=== PATIENT | male | born 1975 | race Caucasian/White ===

== ENCOUNTER 2024-01-12 22:54 | Observation (INO) | payer BC, SELFPAY ==
[2024-01-12 23:01] VITALS: BP 187/94; PULSE 68; RESP 18; TEMP 36.7; O2SAT 99; BMI 33.5
--- NOTE | 2024-01-12 23:04 | ECG_ITS ---
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 Measurements Intervals [place] Rate: 68 P: 42 [place]: 167 QRS: 31 QRSD: 89 T: 41 QT: 364 QTc: 390 Interpretive Statements SINUS RHYTHM NON-SPECIFIC ST T WAVE CHANGES POSSIBLE LEFT ATRIAL ENLARGEMENT [-0.1mV P-WAVE IN V1/V2] No previous ECG available for comparison Electronically Signed On 01-13-2024 14:08:45 CDT by Sanju Dietz M.D. [id number]
--- NOTE | 2024-01-12 23:12 | XRR_ITS ---
PROCEDURE INFORMATION: Exam: XR Chest Exam date and time: 01/12/2024 11:16 PM Age: 48 years old Clinical indication: Chest pressure; Patient HX: C/O chest pain; Additional info: Cp TECHNIQUE: Imaging protocol: Radiologic exam of the chest. Views: 1 view. COMPARISON: No relevant prior studies available. FINDINGS: Lungs: Small lung volumes. No consolidation. Pleural spaces: No pleural effusion. No pneumothorax. Heart/Mediastinum: No cardiomegaly. Bones/joints: No acute findings. XR/XR chest 1V portable [id number] IMPRESSION: No acute chest findings.
--- NOTE | 2024-01-12 23:15 | ED_ITS ---
HPI - Chest Pain 2 General: Chief Complaint: Chest Pain Stated Complaint: chest pain- left arm and headache Time Seen by Provider: 01/12/24 23:12 History of Present Illness: 48-year-old male patient with a history of hypertension. No history of coronary disease. He presents with chest left arm discomfort, and headache. He has been treated for high blood pressure recently, with losartan. Blood pressure can spike, and so was given clonidine for breakthrough hypertension. He took 1 of these tonight, as he was having blood pressures in the 180s to 190s systolic. Despite taking his medication, he developed chest discomfort, with some neck and arm discomfort and headache as above. No shortness of breath, no diaphoresis or nausea. Pain is somewhat improved now. Related Data Home Medications Medication Instructions Recorded Confirmed clonidine HCl 0.1 mg tablet 0.1 mg PO PRN 01/12/24 01/12/24 losartan 100 mg tablet 100 mg PO DAILY 01/12/24 01/12/24 Allergies Allergy/AdvReac Type Severity Reaction Status Date / Time lisinopril Allergy Unknown Verified 01/12/24 23:07 Physical Exam 2 Const: COMMON NORMALS: no acute distress GENERAL APPEARANCE: cooperative; not ill appearing and not frail appearing HENMT: COMMON NORMALS: normocephalic, atraumatic and Normal external nose present HEAD & SCALP: normocephalic and atraumatic FACE & SINUS: normal facial exam and face symmetric NOSE: Normal external nose present Eye: COMMON NORMALS: Equal, round and reactive pupils present and EOMs intact bilaterally PUPIL: Yes Equal, round and reactive pupils present Neck/C-Spine: GENERAL: Yes trachea midline Chest: CHEST: Yes Symmetrical chest wall rise and Yes tenderness (Left anterior chest wall.) Resp: COMMON NORMALS: normal respiratory effort, No retractions, No use of accessory muscles and clear to auscultation bilaterally AUSCULTATION: clear to auscultation bilaterally Cardio: COMMON NORMALS: regular rate and regular rhythm RATE: regular rate RHYTHM: regular rhythm GI: COMMON NORMALS: Normal to inspection, nondistended, normoactive bowel sounds present Extremity: COMMON NORMALS: no pedal edema Neuro: ADELA COMA SCALE: document GCS findings Adela coma scale eye opening: Spontaneous Adela coma scale verbal response: Orientated [place] coma scale motor response: Obey commands Adela coma scale total score: 15 S ENSORY EXAM: Yes extremities (intact) Psych: COMMON NORMALS: speech normal SPEECH: Yes normal speech Skin: COMMON NORMALS: no rashes or lesions noted GENERAL SKIN EXAM: no rashes or lesions noted Course 2 Vital Signs: Vital signs: Vital Signs Temperature 98.0 F 01/12/24 23:01 Pulse Rate 55 L 01/13/24 02:25 Respiratory Rate 20 H 01/13/24 02:25 Blood Pressure 140/92 01/13/24 02:25 Pulse Oximetry 96 01/13/24 02:25 Oxygen Delivery Me thod Room Air 01/12/24 23:31 MDM - Chest Pain Medical Decision Making Patient has somewhat reproducible left chest wall tenderness. He was quite hypertensive on arrival. He is given amlodipine here. Heart rate 55, blood pressure 146/100. Saturations 94% on room air. EKG shows a sinus rhythm, with normal intervals. There is minimal benign-appearing ST elevation, one half blocks in V1 V2 only, no reciprocal changes. Heart rate is 70. His first troponin, however, is 39. Awaiting a second. 2-hour delta troponin is 4. Chest x-ray is nonacute. Pain is may be starting to come back a bit after morphine and sublingual nitroglycerin. He is given aspirin and Nitropaste here. Spoke with the hospitalist. Will observe this gentleman, as he is EKG is not normal, and troponin is mildly elevated. He will go to the [facility]. Hospitalist will see the patient. Lab Data 01/12/24 23:20 01/12/24 23:20 Radiology Impressions Chest X-Ray 01/12/24 23:12 IMPRESSION: No acute chest findings. Laboratory Results WBC 5.35 10^3/uL (3.29-11.43) 01/12/24 23:20 RBC 4.74 10^6/uL (3.85-5.65) 01/12/24 23:20 Hgb 14.20 g/dL (11.27-16.99) 01/12/24 23:20 Hct 43.4 % (37-53) 01/12/24 23:20 MCV 91.6 fl (82-101) 01/12/24 23:20 MCH 30.0 pg (27-33) 01/12/24 23:20 MCHC 32.7 g/dL (30-55) 01/12/24 23:20 RDW 12.6 % (12.1-15.1) 01/12/24 23:20 Plt Count 134 10^3/cmm (157-399) L 01/12/24 23:20 MPV 11.0 fL (7.4-10.4) H 01/12/24 23:20 Neut % (Auto) 58.2 % 01/12/24 23:20 Lymph % (Auto) 32.0 % 01/12/24 23:20 Nicholas % (Auto) 7.3 % 01/12/24 23:20 Eos % (Auto) 1.5 % 01/12/24 23:20 Baso % (Auto) 0.6 % 01/12/24 23:20 Neut # (Auto) 3.12 10^3/uL (1.8-7.7) 01/12/24 23:20 Lymph # (Auto) 1.7 10^3/uL (0.8-4.8) 01/12/24 23:20 Nicholas # (Auto) 0.4 10^3/uL (0.2-0.9) 01/12/24 23:20 Eos # (Auto) 0.1 10^3/uL (0.0-0.8) 01/12/24 23:20 Baso # (Auto) 0.0 10^3/uL (0.0-0.1) 01/12/24 23:20 Nucleated RBC % (auto) 0 % 01/12/24 23:20 Nucleated RBCs # 0.0 /100WBC 01/12/24 23:20 PT 12.80 SECONDS (12.1-14.9) 01/12/24 23:20 INR 0.93 (0.8-1.2) 01/12/24 23:20 APTT 28.2 SECONDS (23.9-36.7) 01/12/24 23:20 D-Dimer 0.38 ug/mLFEU (0-0.59) 01/12/24 23:20 Sodium 141 mmol/L (136-145) 01/12/24 23:20 Potassium 4.5 mmol/L (3.5-5.1) 01/12/24 23:20 Chloride 104 mmol/L (98-107) 01/12/24 23:20 Carbon Dioxide 28 mmol/L (22-29) 01/12/24 23:20 Anion Gap 13.5 (5-19) 01/12/24 23:20 BUN 22 mg/dL (6-20) H 01/12/24 23:20 Creatinine 1.2 mg/dL (0.7-1.2) 01/12/24 23:20 GFR Calculation 65.2 mL/min (90-130) L 01/12/24 23:20 Glucose 102 mg/dL (65-115) 01/12/24 23:20 Calculated Osmolality 296 mOsm/kg (285-295) H 01/12/24 23:20 Calcium 8.9 mg/dL (8.5-10.5) 01/12/24 23:20 Total Bilirubin 0.5 mg/dL (0.15-1.2) 01/12/24 23:20 AST 16 U/L (0-40) 01/12/24 23:20 ALT 15 U/L (0-41) 01/12/24 23:20 Alkaline Phosphatase 71 U/L (40-130) 01/12/24 23:20 Troponin T Baseline 39 ng/L (0-15) H 01/12/24 23:20 Troponin T 120 Minute 43.23 ng/L (0-15) H 01/13/24 01:30 Delta Troponin T 4.23 ABS# (0-10) 01/13/24 01:30 NT-Pro-B Natriuret Pep < 36 pg/mL (0-125) 01/12/24 23:20 Total Protein 6.5 g/dL (6.6-8.7) L 01/12/24 23:20 Albumin 4.3 g/dL (3.5-5.2) 01/12/24 23:20 Globulin 2.2 g/dL (1.3-4.6) 01/12/24 23:20 All radiology interpretation(s) finalized by discharge Discharge Plan Discharge Patient Disposition: Placed in Observation Clinical Impression: Chest pain Condition: Stable Prescriptions: No Action losartan 100 mg tablet 100 mg PO DAILY clonidine HCl 0.1 mg tablet 0.1 mg PO PRN Referrals: Rosa Isela Castro [Primary Care Provider] - Coding Level of Care Code ED Manager Employee Relations for [employer]
[2024-01-12 23:31] VITALS: BP 184/102; PULSE 63; RESP 18; O2SAT 95
[2024-01-12 23:34] LABS: Basophils % 0.6 %; Eosinophils # 0.1 10^3/uL (0.0-0.8); Eosinophils % 1.5 %; Hematocrit 43.4 % (37-53); Lymphocytes # 1.7 10^3/uL (0.8-4.8); Mean Corpuscular HGB Conc 32.7 g/dL (30-55); Mean Corpuscular Volume 91.6 fl (82-101); Monocytes # 0.4 10^3/uL (0.2-0.9); Monocytes % 7.3 %; Neutrophils # 3.12 10^3/uL (1.8-7.7); Neutrophils % 58.2 %; Nucleated Red Blood Cells % 0 %; Platelet Count 134 10^3/cmm (157-399); Red Blood Count 4.74 10^6/uL (3.85-5.65); Red Cell Distribution Width 12.6 % (12.1-15.1); White Blood Count 5.35 10^3/uL (3.29-11.43)
[2024-01-12 23:41] LABS: INR 0.93 (0.8-1.2)
[2024-01-12 23:42] LABS: Partial Thromboplastin Time 28.2 SECONDS (23.9-36.7)
[2024-01-12 23:44] VITALS: BP 149/91; PULSE 60; RESP 21; O2SAT 94
[2024-01-12 23:45] VITALS: BP 149/91; PULSE 62; RESP 18; O2SAT 95
[2024-01-12 23:50] VITALS: BP 149/91; PULSE 63; RESP 22; O2SAT 95
[2024-01-12 23:52] LABS: Troponin(5th) Baseline 39 ng/L (0-15)
[2024-01-12 23:55] VITALS: BP 149/91; PULSE 57; RESP 22; O2SAT 97
[2024-01-12] MEDS: amlodipine 10 mg Tablet PO (23:57)
[2024-01-12 23:58] LABS: Alanine Aminotransferase 15 U/L (0-41); Albumin Level 4.3 g/dL (3.5-5.2); Alkaline Phosphatase 71 U/L (40-130); Anion Gap 13.5 (5-19); Aspartate Amino Transferase 16 U/L (0-40); Blood Urea Nitrogen 22 mg/dL (6-20); Calcium 8.9 mg/dL (8.5-10.5); Carbon Dioxide 28 mmol/L (22-29); Chloride 104 mmol/L (98-107); Creatinine Clr Calc Pharmacy 96.5293; Globulin 2.2 g/dL (1.3-4.6); Glomerular Filtration Rate 65.2 mL/min (90-130); Glucose 102 mg/dL (65-115); Osmolality Calculated 296 mOsm/kg (285-295); Potassium 4.5 mmol/L (3.5-5.1); Sodium 141 mmol/L (136-145); Total Bilirubin 0.5 mg/dL (0.15-1.2); Total Protein 6.5 g/dL (6.6-8.7)
[2024-01-13] VITALS (139 sets, daily range): BP systolic 97–164; BP diastolic 51–100; PULSE 34–78; RESP 8–37; TEMP 36.7–37.1; O2SAT 92–100; BMI 34.8
[2024-01-13 00:01] LABS: NT Pro B Type Natriuretic Pept < 36 pg/mL (0-125)
[2024-01-13 00:33] LABS: D Dimer 0.38 ug/mLFEU (0-0.59)
[2024-01-13] MEDS: nitroglycerin 0.4 mg sublingual Tablet SUBLINGUAL (01:22)
[2024-01-13] MEDS: ondansetron 2 mg/ML SDV 2 mL 4 MG IVP (01:24)
[2024-01-13] MEDS: morphine 4 mg/mL SDV 1 mL IVP (01:26)
[2024-01-13 01:53] LABS: Troponin 5 2HR 43.23 ng/L (0-15); Troponin 5 2HR Delta 4.23 ABS# (0-10)
--- NOTE | 2024-01-13 02:07 | ECG_ITS ---
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 Measurements Intervals [place] Rate: 58 P: 43 [place]: 164 QRS: 39 QRSD: 97 T: 43 QT: 401 QTc: 394 Interpretive Statements SINUS BRADYCARDIA Compared to ECG 01/12/2024 22:54:40 Sinus rhythm no longer present Electronically Signed On 01-13-2024 14:14:23 CDT by Sanju Dietz M.D. [id number]
[2024-01-13] MEDS: aspirin 81 mg Chew Tablet 324 MG PO (02:44)
[2024-01-13] MEDS: nitroglycerin 1 gm/inch oint Pkt 1 INCH TOPICAL ×2 (02:45→04:36)
--- NOTE | 2024-01-13 03:04 | P.HP_ITS ---
Providers/Chief Complaint 2 Admitting Physician: Jett Marinelli Primary Care Provider: Rosa Isela Castro Chief Complaint: chest pain- left arm and headache History of Present Illness Pleasant 48-year-old gentleman with history of diagnosed hypertension, has had medication changed due to intolerance currently on losartan and has clonidine as needed for breakthrough hypertension. He and family noticed that he over last couple days blood pressure had been elevated up to 160s despite taking his usual medication, and last night it was elevated he even took clonidine, and it was still in the 180s. He also started having chest pain on the left side rating to the back of the head as well as left hand. On presentation in ER he was still hypertensive, blood pressure 180/102, bradycardia, heart rate 54-68, maintaining oxygen saturation, afebrile, without leukocytosis, no anemia, mild thrombocytopenia platelets 134. INR normal, D-dimer obtained and not elevated. CBC unremarkable, normal liver enzymes, BUN 22, creatinine 1.2. Baseline troponin 39, 2-hour troponin 43, NT proBNP undetectable. Chest x-ray read as without acute findings. Despite initial improvement in pain, pain had returned and still there at about a 4/10. Review of Systems 2 Const: Denies: fever(s), chills, body aches or malaise ENMT: Denies: throat pain Card: Reports: chest pain; Denies: edema, pre-syncope or dyspnea on exertion Resp: Denies: productive cough, change in phlegm color or hemoptysis GI: Denies: abdominal pain, nausea, vomiting, diarrhea, constipation, hematochezia or melena : Denies: hematuria Skin/Breast: Denies: rash or new lesions Neuro: Denies: headache(s) or dizziness Medications/Allergies Home Medications Medication Instructions Recorded Confirmed Last Taken Type clonidine HCl 0.1 mg tablet 0.1 mg PO PRN 01/12/24 01/12/24 01/12/24 History losartan 100 mg tablet 100 mg PO DAILY 01/12/24 01/12/24 01/12/24 History Allergies Allergy/AdvReac Type Severity Reaction Status Date / Time lisinopril Allergy Unknown Verified 01/12/24 23:07 PFSH Acute 2 PFSH: Medical History (Updated 01/13/24 @ 04:53 by Jett Marinelli MD) HTN (hypertension) Vitals/I&O/Wt Last Vital Signs Temp 98.0 F 01/12/24 23:01 Pulse 58 L 01/13/24 03:00 Resp 10 L 01/13/24 03:00 BP 132/84 01/13/24 03:00 Pulse Ox 97 01/13/24 03:00 O2 Del Method Room Air 01/12/24 23:31 Weight last 48 hrs Weight 108.862 kg Physical Exam 2 Narrative: Accompanied by his family. Const: COMMON NORMALS: patient oriented x3 and alert GENERAL APPEARANCE: c ooperative ORIENTATION/CONSCIOUSNESS: Yes awake HENMT: COMMON NORMALS: oropharynx normal Neck/C-Spine: COMMON NORMALS: no JVD Chest: OTHER: Mild pain reproducible with palpation over the left pectoral. Resp: COMMON NORMALS: normal respiratory effort and clear to auscultation bilaterally AUSCULTATION: clear to auscultation bilaterally Cardio: COMMON NORMALS: no JVD, regular rhythm, S1 normal heart sound present, S2 normal heart sound present and No murmurs present (Cardio) RHYTHM: regular rhythm HEART SOUNDS: S1 normal heart sound present and S2 normal heart sound present GI: COMMON NORMALS: Normal to inspection, nondistended, normoactive bowel sounds present, Soft to palpation and non-tender PALPATION: Yes Soft to palpation Extremity: COMMON NORMALS: no joint enlargement and no pedal edema Neuro: COMMON NORMALS: patient oriented x3 and moves all extremities S ENSORIUM/ORIENTATION: Yes alert Skin: COMMON NORMALS: no rashes or lesions noted GENERAL SKIN EXAM: no rashes or lesions noted Data 01/12/24 23:20 01/12/24 23:20 A&P Assessment and plan (1) NSTEMI (non-ST elevated myocardial infarction): Left-sided chest pain, rating to left arm also somewhat to the back of the head. Troponin with mild elevation 39-43. D-dimer not elevated. History of hypertension. Never smoker, no family history of heart disease. 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 Some of the pain is reproducible, but as per discussion difficult to delineate which pain might be musculoskeletal versus cardiac. Reviewed vitals, CBC, INR, D-dimer, CMP, troponin, NT proBNP, chest x-ray, EKG appears to have on my depression J-point elevation in V1, V2 with suspected early repolarization, pending official read. Discussed with cigar packer and shader, repeat EKG in case of persistent pain, nitro drip. Started anticoagulation with Lovenox, monitor for risk of bleeding with anticoagulation and antiplatelet. Continue aspirin. Repeat CBC. Cardiology consultation. Obtain TTE. Keep n.p.o., discussed with patient and his with return of pain, concern for acute NE, coronary calcifications on CTA, additional assessment with coronary angiography likely may be needed. Deferred stress testing. Continue aspirin. Check lipid profile. Likely will need statin. Hold off beta-luke for now due to bradycardia. Monitor on telemetry with risk of life-threatening arrhythmia. Will need continued optimization of cardiovascular risk factors after discharge, mainly hypertension. (2) Chest pain: Additional workup as above for concern for suspected NSTEMI. Check CK. (3) Troponin level elevated: (4) Uncontrolled hypertension: Will benefit from continued optimization of hypertension, continue losartan, add amlodipine. Continue clonidine as needed at home. Currently on Nitropaste, in case persistent chest pain, elevated blood pressure, start nitro drip. (5) Thoracic aortic ectasia: Incidentally noted on CT, discussed with him and his noted aortic ectasia 4 cm, at the root and 3.8 cm ascending thoracic aorta. No evidence of dissection on CTA. Will need optimization of blood pressures, follow-up with PCP Attestations 2 Medical Necessity Statement*: Place in observation for additional assessment management of NSTEMI, uncontrolled/difficult to control hypertension. Diagnoses NSTEMI (non-ST elevated myocardial infarction) I21.4 Chest pain R07.9 Troponin level elevated R79.89 Uncontrolled hypertension I10 Thoracic aortic ectasia I77.810
--- NOTE | 2024-01-13 03:31 | CTR_ITS ---
PROCEDURE INFORMATION: Exam: CTA Chest With Contrast Exam date and time: 01/13/2024 3:33 AM Age: 48 years old Clinical indication: Pain and abnormal findings; Abnormal diagnostic tests; Other: Elevated trop; Chest pressure; Patient HX: C/O chest pain with hypertension. Elevated base troponin with positive delta. Widened mediastinum on XR. TECHNIQUE: Imaging protocol: Computed tomographic angiography of the chest with contrast. Exam focused on the arteries. 3D rendering (Not supervised by radiologist): MIP and/or 3D reconstructed images were created by the technologist. Radiation optimization: All CT scans at this facility use at least one of these dose optimization techniques: automated exposure control; mA and/or kV adjustment per patient size (includes targeted exams where dose is matched to clinical indication); or iterative reconstruction. Contrast material: OMNI 350; Contrast volume: 100 ml; Contrast route: INTRAVENOUS (IV); COMPARISON: CT angio chest [id number] 01/13/2024 3:33 AM RADIATION DOSE METRICS: Total DLP (mGy-cm): 923.63 FINDINGS: Pulmonary arteries: No pulmonary emboli. Aorta: Aortic root measures upwards of 4.0 cm. Ascending thoracic aorta measures upwards of 3.8 cm. No evidence of dissection. Lungs: No consolidation. No masses. Pleural spaces: No pneumothorax. No pleural effusion. Heart: Cardiomegaly. Coronary arteries: Multivessel coronary artery calcification. Lymph nodes: No enlarged lymph nodes. Spleen: Splenomegaly. Bones/joints: No acute fracture. Soft tissues: Unremarkable. CT/CT angio chest [id number] IMPRESSION: 1. Enlargement of the aortic root measuring up to 4.0 cm along with ectasia of the ascending thoracic aorta measuring 3.8 cm. No evidence of aortic dissection. 2. Cardiomegaly and multivessel coronary artery calcification
[2024-01-13] MEDS: iohexol 350 mg/mL 500 mL Btl (per mL) IV (03:41)
--- NOTE | 2024-01-13 03:44 | USCV_ITS ---
Torrey Wheeler Age: 48 Gender: M : 1975 Exam Date: 01/13/2024 14:25 Ordering Phys: Jett Marinelli MD Technologist: Exam Location: Indication: BP: / HR: Rhythm: Sinus Technical Quality: MEASUREMENTS (Male / Female) Normal Values FINDINGS Left Ventricle Normal left ventricular size, systolic function and wall thickness, with no regional wall motion abnormalities. Left ventricular ejection fraction is estimated at 60 %. Grade I/IV diastolic dysfunction (abnormal relaxation filling pattern), normal to mildly elevated filling pressures. Right Ventricle The right ventricle is normal in size and function. Right Atrium The right atrium is normal in size. Left Atrium The left atrium is normal in size. Mitral Valve Moderately thickened mitral valve. Mitral annular calcification. No mitral valve stenosis. Mild mitral valve regurgitation. Aortic Valve Moderate aortic valve calcification. No aortic valve stenosis. Trace aortic valve regurgitation. Tricuspid Valve Structurally normal tricuspid valve without significant stenosis or regurgitation. Pulmonary artery systolic pressure is normal. Pulmonic Valve Structurally normal pulmonic valve without significant stenosis. There is no pulmonic regurgitation. Pericardium Normal pericardium without effusion. Aorta Normal ascending aorta dimension. IVC The inferior vena cava appears normal. CONCLUSIONS Normal left ventricular size, systolic function and wall thickness, with no regional wall motion abnormalities. Left ventricular ejection fraction is estimated at 60 %. Grade I/IV diastolic dysfunction (abnormal relaxation filling pattern), normal to mildly elevated filling pressures. Moderate aortic valve calcification. No aortic valve stenosis. Trace aortic valve regurgitation. Right atrial pressure is around 5 mm of mercury. Keerthi Sr MD (Electronically Signed) Final Date: 14 January 2024 14:07 S
[2024-01-13] MEDS: enoxaparin 120 mg/0.8 mL Syringe 110 MG SUBCUT (04:37)
[2024-01-13 04:45] LABS: Cholesterol 205 mg/dL (0-200); Creatine Phosphokinase 250 U/L (39-308); HDL Cholesterol 50 mg/dL (60-100); LDL Cholesterol Calculated 108 mg/dL (50-129); Triglycerides 233 mg/dL (0-150); VLDL Cholestrol Calculation 47 mg/dL (0-30)
--- NOTE | 2024-01-13 05:03 | ECG_ITS ---
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 Measurements Intervals [place] Rate: 56 P: 42 [place]: 167 QRS: 39 QRSD: 90 T: 42 QT: 408 QTc: 397 Interpretive Statements SINUS BRADYCARDIA Compared to ECG 01/13/2024 02:07:42 No significant changes Electronically Signed On 01-13-2024 14:14:13 CDT by Sanju Dietz M.D. [id number]
[2024-01-13 07:00] LABS: Troponin 5 6HR 140.4 ng/L (0-15)
[2024-01-13 07:01] LABS: Troponin 5 6HR Delta 101.4 ng/L (0-12)
--- NOTE | 2024-01-13 08:05 | P.CONIM_ITS ---
Providers/Reason For Consult 2 Consulting Physician/Specialty*: Sanju Dietz MD/ Cardiology Reason for Consult*: NSTEMI Requesting Physician: Dr Marinelli Attending Physician: Dejuan Pritchett MD Primary Care Provider: Rosa Isela Castro History of Present Illness History of Present Illness Torrey Wheeler is a 48 year old male with past medical history of hypertension which is uncontrolled presented to hospital with chest discomfort and elevated blood pressure. Pain was radiating to the back and to the neck. Even after blood pressure control patient continues having chest discomfort. Initial troponin was 39 that trended up to 140 at 6 hours. EKG had non specific ST changes in alexus/anteroseptal leads. CTA chest was performed that showed ectatic ascending aorta. Review of Systems 2 Const: Denies: fever(s), chills, body aches or malaise ENMT: Denies: throat pain Card: Reports: chest pain; Denies: edema, pre-syncope or dyspnea on exertion Resp: Denies: productive cough, change in phlegm color or hemoptysis GI: Denies: abdominal pain, nausea, vomiting, diarrhea, constipation, hematochezia or melena : Denies: hematuria Skin/Breast: Denies: rash or new lesions Neuro: Denies: headache(s) or dizziness Medications/Allergies Home Medications Medication Instructions Recorded Confirmed Last Taken Type clonidine HCl 0.1 mg tablet 0.1 mg PO PRN 01/12/24 01/12/24 01/12/24 History losartan 100 mg tablet 100 mg PO DAILY 01/12/24 01/12/24 01/12/24 History Allergies Allergy/AdvReac Type Severity Reaction Status Date / Time lisinopril Allergy Unknown Verified 01/12/24 23:07 Current Medications Generic Name Dose Route Start Last Admin Trade Name Freq PRN Reason Stop Dose Admin Enoxaparin Sodium 110 mg 01/13/24 04:30 01/13/24 04:37 Enoxaparin 120 Mg/0.8 Ml Syringe SUBCUT 110 mg Q12H SADE Administration Nitroglycerin 1 inch 01/13/24 04:15 01/13/24 04:36 Nitroglycerin 1 Gm/Inch Oint Pkt TOPICAL 1 inch ONCE SADE Administration PFSH Acute 2 PFSH: Medical History HTN (hypertension) Vitals/I&O/Wt Last Vital Signs Temp 98.0 F 01/13/24 07:14 Pulse 52 L 01/13/24 07:14 Resp 16 01/13/24 07:14 BP 115/76 01/13/24 07:14 Pulse Ox 95 01/13/24 07:14 O2 Del Method Room Air 01/13/24 07:14 Weight last 48 hrs Weight 252 lb 3.341 oz Weight 250 lb 0.067 oz Weight 240 lb Physical Exam 2 Narrative: GENERAL: Patient is alert, awake and oriented x3. [] NECK: No jugular vein distension. [] HEENT: No cyanosis. No icterus. No pallor. [] HEART: Regular S1 and S2. No murmur, rub or gallop. [] LUNGS: Clear to auscultate bilaterally. [] CENTRAL NERVOUS SYSTEM: Grossly nonfocal. [] EXTREMITIES: Lower extremities with 1+ edema bilaterally Data 01/14/24 04:01 01/14/24 04:01 A&P Assessment and plan (1) NSTEMI (non-ST elevated myocardial infarction): (2) Uncontrolled hypertension: (3) Thoracic aortic ectasia: Plan Patient has presented with typical chest pain symptoms and troponin elevation. Pain continues after blood pressure control. Will proceed with coronary angiogram with possible PCI. Risks and benefits of the procedure been discussed. He understand these and wants to proceed. He has been given Lovenox. Continue aspirin. ECHO ordered. Thank you for involving us with care of this patient. We will continue to follow. Please call with questions. Consult Attestations 2 Medical Necessity Statement: Care expected to cross 2 midnights. Coding Level of Care Code Acute Code for [facility] Diagnoses NSTEMI (non-ST elevated myocardial infarction) I21.4 Uncontrolled hypertension I10 Thoracic aortic ectasia I77.810
[2024-01-13 08:22] LABS: Thyroid Stimulating Hormone 3.81 uIU/mL (0.27-4.20)
[2024-01-13] MEDS: losartan 50 mg Tablet 100 MG PO (08:26)
[2024-01-13] MEDS: aspirin 325 mg Tablet PO (08:26)
[2024-01-13] MEDS: amlodipine 10 mg Tablet PO (08:26)
--- NOTE | 2024-01-13 08:26 | XACV_ITS ---
Exam Room: [facility] Ht: 180 cm Wt: 114 kg BSA: 2.43 m2 Gender: Male : 1975 Any Known Allergies: Other Exam Priority: Routine Procedure(s): Procedure Description: Diagnostic procedure Procedure Description: PCI procedure Procedure Description: Coronary IVUS Procedure Description: Drug Eluting Coronary Stent Procedure Description: PTCA Procedure Description: Miscellaneous Procedure Description: ACT Procedure Description: Coronary Angiography Diagnostic Cath Status: Urgent Diagnostic Findings * Left Main has no significant disease. * Circumflex has no significant disease. * Right Coronary Artery has no significant disease. * Mid Left Anterior Descending: significant 70-80% stenosis, ASHLEY: 3 flow. Has hazy appearance to it. IVUS showed MLA of 3mm2. * Coronary angiography shows right dominance. PCI Status: Urgent PCI Indication: NSTE - ACS Interventional Findings * PROCEDURE DETAIL: We engaged left main artery with XB 3.5 guide catheter. IV heparin was administered to maintain anticoagulation. As IFR set up was not working, we proceeded with the IVUS over runthrough wire. IVUS showed a MLA of 3.0 mm2. We predilated stenosis with 3.5x15mm semicompliant balloon. We then placed 3.5 x 22 mm resolute Brandie drug-eluting stent.This was followed by postdilation of the proximal segment with 4.0 x 15 mm NC balloon. IVUS was performed that showed well apposed and well expanded stent. Final angiogram performed that showed excellent stent expansion, ASHLEY 3 flow and no residual stenosis. Guidewire and guide catheter were removed. Patient left the Tmh Teacher in a stable condition.. * Mid Left Anterior Descendin% stenosis treated with a AB TREK 3.50X15 RX BALLOON, SHAMEKA Law BRANDIE 3.5X22 MIRACLE, and SHAMEKA BALBUENA EUPHORA RX [id number] BALLOON. 0% residual stenosis, ASHLEY: 3 flow. Conclusions 1. Severe mid LAD stenosis s/p successful revascularization with 1 stent. 2. Mid Left Anterior Descending was treated with a Balloon, Drug Eluting Stent, and Balloon. Recommendations * Dual antiplatelet therapy with aspirin and brilinta for at least 1 year. * High intensity statin therapy. * Outpatient cardiology follow up in 2 weeks. Interventional RX Recommendation: PCI w/o planned CABG Diagnostic RX Recommendation: PCI w/o planned CABG Anticoagulation: Heparin Pressures Phase:Rest AO : 118 / 89 ( 105 ) @ 10:05:00 AM 131 / 81 ( 98 ) @ 10:08:00 AM 118 / 67 ( 87 ) @ 10:22:00 AM 106 / 71 ( 90 ) @ 10:48:00 AM Clinical Evaluation EBL: 5mL-10mL Procedural Details Procedure Consent Obtained. Pre-Procedure Time Out. Identified patient by full name and date of as verbalized by the patient/guarantor. Does the consent match the physician's order: Yes. Accurate & Complete Informed Consent: Yes. Inpatient/Outpatient History & Physical on Chart: Yes. If H&P is completed, is and addenduem needed: No. Visualize and Verify Site with Patient/Guarantor: N/A. Relevant Radiology Images available: Yes. The risks, benefits, and alternatives of sedation and/or procedure were discussed by physician. The patient agrees to continue. Procedure started. [facility] Clinical Fraility Score: 3: Managing Well. Tmh Teacher Indications: ACS > 24 hours. Chest Pain Symptom Assessment: Typical Angina Symptoms. Cardiovascular Instability: No. Correct patient, site and procedure confirmed by cath team. PERRLA. Strong, equal hand tugboat pilot bilaterally. Lungs clear x 5 lobes. IV Site on Arrival: 20 gauge in the left anticubital. IV Fluids: 0.9% NaCl at KVO. 0 mL infused prior to bolt labeler. Pre Procedural Pulses: bilateral dorsalis pedis was 3+. Pre Procedural Pulses: bilateral posterior tibial was 3+. Pre Procedural Pulses: bilateral radial was 3+. Oxygen started at 2liters/min via nasal canula. right groin was prepped with chloroprep then draped in the usual sterile fashion. right radial was prepped with chloroprep then draped in the usual sterile fashion. Physician notified. Baseline sample Acquired. HR: 59 BPM. Patient's family in the bolt labeler waiting room. Dr. Dietz will update at the completion of the procedure. Equipment: 6F - Radial. Cardiac Cath Pack. ACIST Manifold Kit Model BT 2000. Heparinized Saline (2 units/mL), 1000 mL bag. Physician arrived. Physician scrubbed in. Immediate Pre-Procedure Time Out. Correct Patient: Yes; Correct Procedure: Yes; Correct Site: Yes; Correct Patient Position: Yes; Correct Supplies: Yes; Dried Flammable Prep: Yes; Blood Products Available: N/A. Lidocaine 1% infiltrated to the right radial. Arterial access obtained. A 5 eritrean TIG catheter in over the exchange J wire. Multiple views taken of right coronary artery. Catheter removed over the exchange J wire. A 5 eritrean JL3.5 catheter in over the exchange J wire. Multiple views taken of left coronary artery. Catheter removed over the exchange J wire. 6 eritrean XB 3.5 guide catheter was inserted over the exchange J wire. iFR guidewire was advanced through the guide catheter to lesion in the mid LAD. iFR out d/t technical issues. A 2nd iFR guidewire was advanced through the guide catheter to lesion in the mid LAD. 2nd iFR out d/t technical issues. Runthrough guidewire was advanced through the guide catheter to lesion in the mid LAD. IVUS catheter in OTW. IVUS of the mid LAD performed. IVUS catheter out OTW. Inflation number : 1 A AB TREK 3.50X15 RX BALLOON was prepped and advanced across the Mid LAD , then inflated to 8 HEATL for 0:10 seconds. Inflation number: 2 The AB TREK 3.50X15 RX BALLOON was reinflated across the Mid LAD, to 8 HETAL for 0:12 seconds. Balloon out. Results checked. Inflation Number : 3 A MDT R BRANDIE 3.5X22 MIRACLE -Lot Number# [id number] was prepped and advanced across the Mid LAD. The stent was deployed at 14 HETAL for 0:25 seconds. Exp . Stent balloon out over wire. Inflation number : 4 A MDT NC EUPHORA RX [id number] BALLOON was prepped and advanced across the Mid LAD , then inflated to 14 HETAL for 0:18 seconds. Inflation number: 5 The MDT NC EUPHORA RX [id number] BALLOON was reinflated across the Mid LAD, to 16 HETAL for 0:09 seconds. Balloon out. Results checked. IVUS catheter in OTW. IVUS of the mid LAD performed. IVUS catheter out OTW. Results checked. Dr. Pritchett updated the spouse in the bolt labeler waiting room. Wire out. ACT drawn. Results out of range high. Will redraw. Guide catheter out over the exchange J wire. Physician scrubbed out. Medication's Wasted: Lidocaine 1% = 18 mL. Medication's Wasted: Nitro = 49.6 mg. Medication's Wasted: Heparin = 0 mL. Medication's Wasted: Other = Fentanyl 25 mcg. Total IV fluids: 80 mL. PCI Indication: CAD (without ischemic symptoms). Post-op diagnosis: PCI of the Mid LAD s/p 1 MIRACLE. ACT drawn. Results 327 seconds. Therapeutic limits - pre-heparin administration 90-150 seconds and monitoring heparin during a vascular procedure >250 seconds. A TR Band was successful obtaining hemostatsis at the Right Radial artery insertion site. Post Procedure: Pulses reassessed and unchanged. PERRLA. Strong, equal hand tugboat pilot bilaterally. No VTE prophylaxis required. Complications: none. Estimated blood loss: 5mL-10mL. Responsiveness - Normal response to verbal stimuli; alert and oriented, PERRLA. Airway - Unaffected, no intervention required; spontaneous ventilation. Circulation: W/N/L, pulses unchanged. Nausea/Vomiting: No. Procedure completed. Patient transferred by wheelchair to CPRU. Vital chart was stopped. Access Site Site: Right Radial artery Sheath Size: 6 Fr Hemostasis Method: TR Band Hemostasis Success: Successful Procedure Medications Start: 8:52 AM Stop: 8:52 AM Medication: Versed Amount: 1 mg Route: I.V. Start: 8:52 AM Stop: 8:52 AM Medication: Fentanyl Amount: 50 mcg Route: I.V. Start: 9:00 AM Stop: 9:00 AM Medication: Versed Amount: 1 mg Route: I.V. Start: 9:02 AM Stop: 9:02 AM Medication: Nitrogylcerin Amount: 200 mcg Route: I.A. Start: 9:03 AM Stop: 9:03 AM Medication: Heparin Amount: 5000 units Route: I.V. Start: 9:13 AM Stop: 9:13 AM Medication: Heparin Amount: 5000 units Route: I.V. Start: 9:32 AM Stop: 9:32 AM Medication: Fentanyl Amount: 25 mcg Route: I.V. Start: 9:37 AM Stop: 9:37 AM Medication: Heparin Amount: 1000 units Route: I.V. Start: 9:48 AM Stop: 9:48 AM Medication: Nitrogylcerin Amount: 200 mcg Route: I.C. Start: 9:56 AM Stop: 9:56 AM Medication: Brilinta Amount: 180 mg Route: P.O. I, the attending physician, have reviewed and verified all procedure medications. Yes, all medications given per verbal order History/Risk Factors Hypertension: Yes Dyslipidemia: No Peripheral Arterial Disease (PAD): No Myocardial Infarction (HI): No Obesity: Yes Renal Disease: No Tobacco Use: Never Prior Interventions PCI: Yes CABG: No Valve Surgery: No Date of PCI: 01/13/2024 Report Signatures Finalized by Sanju Dietz MD on 01/14/2024 05:21 PM
--- NOTE | 2024-01-13 08:45 | W.PM.EVENTAC ---
Event Note Event Note: Patient seen, history and physical reviewed, patient interviewed and attending changed. Undergoing workup for non-ST elevation myocardial infarction. I discussed with cardiology as well.
--- NOTE | 2024-01-13 08:55 | W.PM.OPSUD ---
Surgery/Procedure H&P Update DATE OF PROCEDURE: January 13, 2024 DATE H&P PERFORMED: 01/13/24 H&P UPDATE INFORMATION: I have reviewed H&P completed within last 30 days, I have examined patient prior to procedure and No changes to prior documentation PREOP DIAGNOSIS: NSTEMI PRIMARY INDICATION FOR PROCEDURE: NSTEMI PLANNED PROCEDURE: Left heart cath with possible percutaneous coronary intervention PATIENT REASSESSED PRIOR TO SEDATION, WITH NO CHANGE NOTED: Yes PHYSICAL EXAM: alert, oriented x 3, clear to auscultation bilaterally and regular rate & rhythm AIRWAY EVAL/ANESTHESIA PLAN: normal airway, ASA III, Local Anesthesia, Risks, benefits & alternatives of sedation and/or procedure discussed and Patient agrees to continue as planned ADDITIONAL INFORMATION: Moderate sedation
--- NOTE | 2024-01-13 08:59 | PC.NURSE ---
Patient left floor for cath procedure
--- NOTE | 2024-01-13 10:58 | PC.NURSE ---
Patient arrived back from cath procedure via wheelchair. Patient has a TR band on right radial wrist. Patient is aware of activity restrictions and safety protocols. Nurse will monitor q15m and remove TR band per protocol.
--- NOTE | 2024-01-13 11:37 | ECG_ITS ---
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 Measurements Intervals [place] Rate: 66 P: 262 [place]: 136 QRS: 60 QRSD: 89 T: 64 QT: 414 QTc: 434 Interpretive Statements JUNCTIONAL RHYTHM/Ectopic atrial rhythm ST ELEVATION, CONSIDER ANTERIOR INJURY [MARKED ST ELEVATION W/O NORMALLY INFLECTED T-WAVE IN V2-V5]ACUTE AR Compared to ECG 01/13/2024 05:03:16 Junctional rhythm now present ST (T wave) deviation now present Myocardial infarct finding now present Sinus bradycardia no longer present Pericarditis versus early repolarization also are considerations Electronically Signed On 01-15-2024 16:50:27 CDT by Larisa Lucio M.D. [email or web address]
--- NOTE | 2024-01-13 11:42 | XACV_ITS ---
Exam Room: [facility] Ht: 178 cm Wt: 91 kg BSA: 2.14 m2 Gender: Male : 1975 Any Known Allergies: Other Exam Priority: Routine Procedure(s): Procedure Description: Diagnostic procedure Procedure Description: PCI procedure Procedure Description: Drug Eluting Coronary Stent Procedure Description: PTCA Procedure Description: Miscellaneous Procedure Description: ACT Diagnostic Cath Status: Emergency Diagnostic Findings * INDICATION: Patient had presented with non-ST elevation IN and underwent successful revascularization of mid LAD with 1 stent. Patient went to the floor and started complaining of chest pain, bradycardia and tingling in the arm about 1 hour postprocedure. EKG was consistent with acute anterior wall ST elevation IN. Patient brought to liaison inspection laboratory assistant emergently. . * Left Main has no significant disease. * Circumflex has no significant disease. * Mid Left Anterior Descending: At distal edge of the stent, LAD is totally occluded. Likely mechanism is stent edge dissection. . * RCA not injected. PCI Status: Emergency PCI Indication: STEMI - Immediate PCI for STEMI Interventional Findings * Mid Left Anterior Descendin% stenosis treated with a AB TREK 2.50X12 RX BALLOON, AB TREK 2.50X25 RX BALLOON, MDKezia Law BRANDIE 2.5X30 MIRACLE, and MDT ESHA EUPHORA RX [id number] BALLOON. 0% residual stenosis, ASHLEY: 3 flow. * Procedure detail: We engaged left main artery with XB 3.5 guide catheter. IV heparin was administered to maintain anticoagulation. Run-through wire was used to cross the totally occluded LAD segment and was placed in the distal vessel. We performed balloon angioplasty starting from distal part of mid LAD stent into the [place] artery. We used 2.5 x 12 mm semicompliant balloon. This was followed by a longer balloon measuring 2.5 x 25 mm. However flow was not seen. Given mechnism of abrupt vessel closure was stent edge dissection, we decided to place a stent measuring 2.5 x 30 mm resolute [place]. This restored ASHLEY 3 flow in the vessel. We post dilated the overlapping segments of the stents with a 3.0x12 mm NC balloon. Final angiogram was performed that showed excellent stent expansion and no residual stenosis. Guide wire and guide catheter were removed. Patient left the liaison inspection laboratory assistant in a stable condition. . Conclusions 1. Total occlusion of mid LAD at distal edge of recently placed stent. Likely secondary to stent edge dissection. S/p successful revascularization with placement of 1 overlapping stent. 2. Mid Left Anterior Descending was treated with a Balloon, Balloon, Drug Eluting Stent, and Balloon. Recommendations * Dual antiplatelet therapy with aspirin and brilinta. * High intensity statin therapy. * Outpatient cardiology follow up in 2 weeks. Interventional RX Recommendation: PCI w/o planned CABG Diagnostic RX Recommendation: PCI w/o planned CABG Anticoagulation: Heparin Pressures Phase:Rest AO : 134 / 87 ( 107 ) @ 12:51:00 PM 132 / 86 ( 105 ) @ 12:51:00 PM 111 / 80 ( 96 ) @ 12:56:00 PM 109 / 80 ( 94 ) @ 12:58:00 PM 98 / 75 ( 87 ) @ 1:01:00 PM 78 / 62 ( 71 ) @ 1:03:00 PM 99 / 72 ( 87 ) @ 1:11:00 PM Clinical Evaluation EBL: 5mL-10mL Procedural Details Pre-Procedure Time Out. Identified patient by full name and date of as verbalized by the patient/guarantor. Does the consent match the physician's order: N/A Emergent. Accurate & Complete Informed Consent: N/A Emergent. Inpatient/Outpatient History & Physical on Chart: N/A Emergent. If H&P is completed, is and addenduem needed: N/A Emergent; If yes, is the addendum complete: N/A Emergent. Visualize and Verify Site with Patient/Guarantor: N/A. Relevant Radiology Images available: N/A Emergent. Pre-op teaching completed and patient verbalized understanding. The risks, benefits, and alternatives of sedation and/or procedure were discussed by physician. The patient agrees to continue. Procedure started. Physician arrived. Physician scrubbed in. Immediate Pre-Procedure Time Out. Correct Patient: N/A Emergent; Correct Procedure: N/A Emergent; Correct Site: N/A Emergent; Correct Patient Position: N/A Emergent; Correct Supplies: N/A Emergent; Dried Flammable Prep: N/A Emergent; Blood Products Available: N/A Emergent;. Lidocaine 1% infiltrated to the right groin. Baseline sample Acquired. HR: 63 BPM. [facility] Clinical Fraility Score: 4: Vulnerable. Radiologic Technician Indications: ACS <= 24 hours. Chest Pain Symptom Assessment: Atypical Angina. Correct patient, site and procedure confirmed by cath team. Current diagnosis: STEMI. PERRLA. Strong, equal hand sand hauler bilaterally. Lungs clear x 5 lobes. Oxygen started at 2liters/min via nasal canula. bilateral groins was prepped with chloroprep then draped in the usual sterile fashion. 6 burmese XB 3.5 guide catheter was inserted over the wire. Runthrough guidewire was advanced through the guide catheter to lesion in the mid LAD. PCI Indication: STEMI. IV Site on Arrival: 20 gauge in the right anticubital. Wire out. Runthrough guidewire was advanced through the guide catheter to lesion in the mid LAD. Inflation number : 1 A AB TREK 2.50X12 RX BALLOON was prepped and advanced across the Mid LAD , then inflated to 8 HETAL for 0:13 seconds. Inflation number: 2 The AB TREK 2.50X12 RX BALLOON was reinflated across the Mid LAD, to 12 HETAL for 0:11 seconds. Balloon out. Results checked. Inflation number : 3 A AB TREK 2.50X25 RX BALLOON was prepped and advanced across the Mid LAD , then inflated to 6 HETAL for 0:19 seconds. Inflation number: 4 The AB TREK 2.50X25 RX BALLOON was reinflated across the Mid LAD, to 4 HETAL for 0:14 seconds. Balloon out. Results checked. Inflation Number : 5 Geovanni Law BRANDIE 2.5X30 MIRACLE -Lot Number# [id number] EXP: 02/23/2026 was prepped and advanced across the Mid LAD. The stent was deployed at 12 HETAL for 0:25 seconds. Stent balloon out over wire. Results checked. Patient's family updated. Inflation number : 6 Geovanni BALBUENA CATHERINE RX [id number] BALLOON was prepped and advanced across the Mid LAD , then inflated to 12 HETAL for 0:29 seconds. Balloon and wire out. ACT drawn. Results 372 seconds. Therapeutic limits - pre-heparin administration 90-150 seconds and monitoring heparin during a vascular procedure >250 seconds. Results checked. Guide catheter out. A Right femoral angiogram was performed to determine safe placement of closure device. Arterial access obtained with micropuncture set. A Suture was successful obtaining hemostatsis at the Right Femoral artery insertion site. Vital chart was stopped. Post Procedure: Pulses reassessed and unchanged. PERRLA. Strong, equal hand sand hauler bilaterally. No VTE prophylaxis required. Medication's Wasted: Other = Fentanyl 75 mcg. Medication's Wasted: Lidocaine 1% = 10 mL. Total IV fluids: 300 mL. Post-op diagnosis: Stent to LAD. Complications: None. Estimated blood loss: 5mL-10mL. Responsiveness - Normal response to verbal stimuli; alert and oriented, PERRLA. Airway - Unaffected, no intervention required; spontaneous ventilation. Circulation: W/N/L, pulses unchanged. Nausea/Vomiting: No. Procedure completed. ACT drawn. Results 225 seconds. Therapeutic limits - pre-heparin administration 90-150 seconds and monitoring heparin during a vascular procedure >250 seconds. Patient transferred by bed to ICU. Access Site Site: Right Femoral artery Sheath Size: 6 Fr Hemostasis Method: Suture Hemostasis Success: Successful Procedure Medications Start: 11:49 AM Stop: 11:49 AM Medication: Versed Amount: 1 mg Route: I.V. Start: 11:50 AM Stop: 11:50 AM Medication: Fentanyl Amount: 25 mcg Route: I.V. Start: 11:53 AM Stop: 11:53 AM Medication: Heparin Amount: 3000 units Route: I.V. Start: 11:54 AM Stop: 11:54 AM Medication: Versed Amount: 1 mg Route: I.V. Start: 12:00 PM Stop: 12:00 PM Medication: Nitrogylcerin Amount: 200 mcg Route: I.C. Start: 12:06 PM Stop: 12:06 PM Medication: 0.9% Saline Amount: 250 ml Route: I.V. bolus Start: 12:24 PM Stop: 12:24 PM Medication: Heparin Amount: 2000 units Route: I.V. I, the attending physician, have reviewed and verified all procedure medications. Yes, all medications given per verbal order History/Risk Factors Hypertension: Yes Dyslipidemia: No Peripheral Arterial Disease (PAD): No Myocardial Infarction (IN): No Obesity: Yes Renal Disease: No Tobacco Use: Never Prior Interventions PCI: Yes CABG: No Valve Surgery: No Date of PCI: 01/13/2024 Report Signatures Finalized by Sanju Dietz MD on 01/15/2024 02:54 PM
--- NOTE | 2024-01-13 11:50 | PC.NURSE ---
Patient Event Patient used restroom came back from restroom and became diaphoretic, chest pain, and bradycardic. Rapid response was initiated. Atropine, Zofran, and 500ml bolus given. Patient taken back to analytical laboratory technician approx. 11:45.
--- NOTE | 2024-01-13 11:55 | W.PM.EVENTAC ---
Event Note Event Note: I responded to a rapid response. When I entered the room the nurse immediately asked for atropine. This was secondary to bradycardia. I said go ahead and give 0.5 mg IV while starting to assess situation. Heart rate was approximately 30. At that time the patient was not clearly complaining of chest discomfort. He was significantly diaphoretic, nauseated. With this, IV fluids were ordered as well as a bolus form. Heart rate came up promptly within 30 to 60 seconds of initiation from 30s to 60-70. He did then complain of some left arm discomfort. Glucose was checked and normal. EKG was obtained which demonstrated some abnormalities. Concern of junctional rhythm and some ST abnormalities. Cardiology arrived, reviewed EKG, and made decision to take patient immediately back to angiogram suite. Blood pressure initially 90 systolic, with repeat of 120 systolic. Taken to angiogram suite with stable vital signs, but complaining of some left arm discomfort.
[2024-01-13 12:50] LABS: Glucose Point of Care 99 mg/dL (70-110)
--- NOTE | 2024-01-13 13:47 | P.MISC_ITS ---
Miscellaneous Note Purpose of Documentation: Brief note Note: Patient had presented with non-ST elevation [place]. Coronary angiogram demonstrated severe mid LAD stenosis. He underwent successful revascularization with 1 stent. Stent sizing performed with IVUS. Once he went back to cardiac stepdown unit, he had an episode of bradycardia and started having chest discomfort and arm discomfort. EKG was performed that was consistent with ST elevation OR. He was emergently brought back to the cardiac Raw Juice Weigher. Angiogram showed acute vessel closure at distal edge of stent. Likely secondary to microdissection at stent edge. We were able to wire it and place another stent which reestablished flow in the vessel. Symptoms resolved. EKG findings resolved. Patient was transferred to ICU for closer observation. Will be kept on aspirin and Brilinta.
[2024-01-13] MEDS: sodium chloride 0.9% 1,000 ML 100 ML IV (14:32)
[2024-01-13 15:59] LABS: Partial Thromboplastin Time 73.4 SECONDS (23.9-36.7)
[2024-01-13 17:06] LABS: Partial Thromboplastin Time 41.4 SECONDS (23.9-36.7)
[2024-01-13] MEDS: morphine 4 mg/mL SDV 1 mL 2 MG IVP (17:09)
[2024-01-13] MEDS: ticagrelor 90 mg Tablet PO (17:10)
--- NOTE | 2024-01-13 17:42 | PC.NURSE ---
Femoral sheath removed at 1730. No hematoma post sheath pull and minimal bleeding during removal. Patient tolerated removed well. TR band also removed. No hematoma or bleeding noted after removal.
[2024-01-13] MEDS: acetaminophen 325 mg Tablet 650 MG PO (18:20)
[2024-01-13] MEDS: atorvastatin 40 mg Tablet PO (20:29)
[2024-01-14] VITALS (21 sets, daily range): BP systolic 99–158; BP diastolic 56–96; PULSE 45–94; RESP 13–30; TEMP 36.6–37; O2SAT 91–100
[2024-01-14] MEDS: sodium chloride 0.9% 1,000 ML 100 ML IV ×3 (00:27→23:34)
[2024-01-14 04:23] LABS: Basophils % 0.2 %; Eosinophils # 0.1 10^3/uL (0.0-0.8); Eosinophils % 0.9 %; Hematocrit 39.8 % (37-53); Lymphocytes # 1.1 10^3/uL (0.8-4.8); Lymphocytes % 16.8 %; Mean Corpuscular HGB Conc 31.9 g/dL (30-55); Mean Corpuscular Hemoglobin 29.7 pg (27-33); Mean Platelet Volume 11.4 fL (7.4-10.4); Monocytes # 0.4 10^3/uL (0.2-0.9); Monocytes % 6.3 %; Neutrophils # 5.01 10^3/uL (1.8-7.7); Neutrophils % 75.3 %; Nucleated Red Blood Cells % 0 %; Platelet Count 124 10^3/cmm (157-399); Red Blood Count 4.28 10^6/uL (3.85-5.65); Red Cell Distribution Width 12.9 % (12.1-15.1); White Blood Count 6.65 10^3/uL (3.29-11.43)
[2024-01-14 04:46] LABS: Anion Gap 12.4 (5-19); Blood Urea Nitrogen 18 mg/dL (6-20); Calcium 8.2 mg/dL (8.5-10.5); Carbon Dioxide 25 mmol/L (22-29); Chloride 105 mmol/L (98-107); Creatinine Clr Calc Pharmacy 91.3286; Glomerular Filtration Rate 59.4 mL/min (90-130); Glucose 110 mg/dL (65-115); Osmolality Calculated 289 mOsm/kg (285-295); Potassium 4.4 mmol/L (3.5-5.1); Sodium 138 mmol/L (136-145)
--- NOTE | 2024-01-14 07:41 | P.PN_ITS ---
Subjective 2 Subjective: Patient is doing well. no chest pain. Had brief episode of SVT last night. Creatinine has increased slightly to 1.3 today. Vitals/I&O/Wt Last Vital Signs Temp 98.6 F 01/14/24 06:00 Pulse 51 L 01/14/24 06:00 Resp 20 H 01/14/24 06:00 BP 139/82 01/14/24 06:00 Pulse Ox 92 01/14/24 06:00 O2 Del Method Room Air 01/14/24 05:00 01/13/24 01/14/24 01/14/24 22:59 06:59 14:59 Intake Total 300 / 400 991.667 / 1391.667 Output Total 1050 / 1050 Balance 300 / 400 -58.333 / 341.667 Weight last 48 hrs Weight 250 lb 0.067 oz Weight 252 lb 3.341 oz Weight 250 lb 0.067 oz Weight 240 lb Physical Exam 2 Narrative: GENERAL: Patient is alert, awake and oriented x3. [] NECK: No jugular vein distension. [] HEENT: No cyanosis. No icterus. No pallor. [] HEART: Regular S1 and S2. No murmur, rub or gallop. [] LUNGS: Clear to auscultate bilaterally. [] CENTRAL NERVOUS SYSTEM: Grossly nonfocal. [] EXTREMITIES: Lower extremities with no edema bilaterally Data 01/14/24 04:01 01/14/24 04:01 A&P Assessment and plan (1) NSTEMI (non-ST elevated myocardial infarction): (2) Uncontrolled hypertension: (3) Thoracic aortic ectasia: Plan Patient had successful revascularization of mid LAD with 1 stent yesterday. Had acute vessel closure about an hour postprocedure likely secondary to prior stent edge microdissection. We were able to rewire it and place another stent restoring blood flow. He is doing well. We will continue with aspirin and Brilinta. High intensity statin therapy Creatinine went up slightly. Continue IV fluids. Continue losartan and amlodipine. Heart rates mostly in 50s, will hold off on rate limiting agents at this time. Can be put on hydralazine PO if BP stays elevated. Can be transferred out of ICU Thank you for involving us with care of this patient. We will continue to follow. Please call with questions. Attestations 2 Medical Necessity Statement*: Care expected to cross 2 midnights. Coding Level of Care Code Acute Code for Chg Fwd Diagnoses NSTEMI (non-ST elevated myocardial infarction) I21.4 Uncontrolled hypertension I10 Thoracic aortic ectasia I77.810
[2024-01-14] MEDS: amlodipine 10 mg Tablet PO (08:09)
[2024-01-14] MEDS: losartan 50 mg Tablet 100 MG PO (08:10)
[2024-01-14] MEDS: ticagrelor 90 mg Tablet PO ×2 (08:10→17:15)
[2024-01-14] MEDS: aspirin 81 mg EC Tablet PO (08:10)
--- NOTE | 2024-01-14 08:59 | P.PN_ITS ---
Subjective 2 Subjective: No chest discomfort. Some bradycardia last night, asymptomatic. While I was talking to the patient he had a short run of SVT, asymptomatic. Medications: Reviewed: Yes Vitals/I&O/Wt Last Vital Signs Temp 98.6 F 01/14/24 06:00 Pulse 51 L 01/14/24 06:00 Resp 20 H 01/14/24 06:00 BP 153/96 01/14/24 08:10 Pulse Ox 92 01/14/24 06:00 O2 Del Method Room Air 01/14/24 05:00 01/13/24 01/14/24 01/14/24 22:59 06:59 14:59 Intake Total 300 / 400 991.667 / 1391.667 Output Total 1050 / 1050 Balance 300 / 400 -58.333 / 341.667 Weight last 48 hrs Weight 113.4 kg Weight 114.4 kg Weight 113.4 kg Weight 108.862 kg Physical Exam 2 Narrative: General Exam no distress Neck is supple Cardiovascular regular rate and rhythm Lungs clear Abdomen soft Extremities no sinus clubbing edema, no significant hematoma right radial or right femoral artery. Data 01/14/24 04:01 01/14/24 04:01 A&P Assessment and plan (1) NSTEMI (non-ST elevated myocardial infarction): Continue aspirin, Brilinta, statin. Not candidate for beta-luke secondary to bradycardia Small run of SVT this morning likely cardiac irritability. Electrolytes including magnesium normal Status post mid LAD stent yesterday, with microdissection following after transfer back to [facility] requiring another stent placement. Currently doing well Creatinine slightly up after procedure, continue hydration and recheck BMP tomorrow (2) Chest pain: See above (3) Troponin level elevated: (4) Uncontrolled hypertension: Continue amlodipine, losartan, monitor blood pressure closely. (5) Thoracic aortic ectasia: Incidentally noted on CT, discussed with him and his noted aortic ectasia 4 cm, at the root and 3.8 cm ascending thoracic aorta. No evidence of dissection on CTA. Will need optimization of blood pressures, follow-up with PCP/cardiology Plan Arrhythmia, SVT and bradycardia. Monitor until tomorrow. Full code SCDs for DVT prophylaxis following cardiac procedure Attestations 2 Medical Necessity Statement*: Needs continued hospitalization for close monitoring of creatinine, increased slightly following procedure as well as close monitoring of arrhythmia. Diagnoses NSTEMI (non-ST elevated myocardial infarction) I21.4 Chest pain R07.9 Troponin level elevated R79.89 Uncontrolled hypertension I10 Thoracic aortic ectasia I77.810 Time Spent (min) 21
[2024-01-14] MEDS: atorvastatin 40 mg Tablet PO (21:06)
[2024-01-15] VITALS: BP 115/69; PULSE 67; RESP 19; TEMP 37.1; O2SAT 98
[2024-01-15 04:00] VITALS: BP 149/87; PULSE 67; RESP 16; TEMP 36.9; O2SAT 98
[2024-01-15 04:26] LABS: Basophils % 0.3 %; Eosinophils # 0.1 10^3/uL (0.0-0.8); Eosinophils % 1.4 %; Hematocrit 43.1 % (37-53); Lymphocytes # 1.2 10^3/uL (0.8-4.8); Lymphocytes % 18.9 %; Mean Corpuscular HGB Conc 32.5 g/dL (30-55); Mean Corpuscular Hemoglobin 29.9 pg (27-33); Mean Corpuscular Volume 91.9 fl (82-101); Mean Platelet Volume 11.4 fL (7.4-10.4); Monocytes # 0.4 10^3/uL (0.2-0.9); Monocytes % 6.9 %; Neutrophils # 4.48 10^3/uL (1.8-7.7); Nucleated Red Blood Cells % 0 %; Platelet Count 133 10^3/cmm (157-399); Red Blood Count 4.69 10^6/uL (3.85-5.65); Red Cell Distribution Width 12.7 % (12.1-15.1); White Blood Count 6.23 10^3/uL (3.29-11.43)
[2024-01-15 04:53] LABS: Anion Gap 14.3 (5-19); Blood Urea Nitrogen 18 mg/dL (6-20); Calcium 8.5 mg/dL (8.5-10.5); Carbon Dioxide 24 mmol/L (22-29); Chloride 104 mmol/L (98-107); Creatinine Clr Calc Pharmacy 107.4591; Glomerular Filtration Rate 72.1 mL/min (90-130); Glucose 107 mg/dL (65-115); Osmolality Calculated 288 mOsm/kg (285-295); Potassium 4.3 mmol/L (3.5-5.1); Sodium 138 mmol/L (136-145)
--- NOTE | 2024-01-15 07:31 | P.PN_ITS ---
Subjective 2 Subjective: Patient is doing well. no chest pain. Has shortness of breath with difficulty taking deep breaths. Vitals/I&O/Wt Last Vital Signs Temp 98.4 F 01/15/24 04:00 Pulse 67 01/15/24 04:00 Resp 16 01/15/24 04:00 BP 149/87 01/15/24 04:00 Pulse Ox 98 01/15/24 04:00 O2 Del Method Room Air 01/15/24 04:00 01/14/24 01/15/24 01/15/24 22:59 06:59 14:59 Intake Total 1300 / 2500 Balance 1300 / 2500 Weight last 48 hrs Weight 250 lb 0.067 oz Weight 250 lb 0.067 oz Physical Exam 2 Narrative: GENERAL: Patient is alert, awake and oriented x3. [] NECK: No jugular vein distension. [] HEENT: No cyanosis. No icterus. No pallor. [] HEART: Regular S1 and S2. No murmur, rub or gallop. [] LUNGS: Clear to auscultate bilaterally. [] CENTRAL NERVOUS SYSTEM: Grossly nonfocal. [] EXTREMITIES: Lower extremities with no edema bilaterally Data 01/15/24 03:50 01/15/24 03:50 A&P Assessment and plan (1) NSTEMI (non-ST elevated myocardial infarction): (2) Uncontrolled hypertension: (3) Thoracic aortic ectasia: Plan Shortness of breath symptoms can be related to Brilinta. On outpatient follow- up with cardiology, if continues having that, we will switch Brilinta to Effient. Continue aspirin. Sleep study as outpatient Thank you for involving us with care of this patient. Please call with questions. Attestations 2 Medical Necessity Statement*: Care expected to cross 2 midnights. Coding Level of Care Code Acute Code for [facility] Diagnoses NSTEMI (non-ST elevated myocardial infarction) I21.4 Uncontrolled hypertension I10 Thoracic aortic ectasia I77.810
[2024-01-15 08:00] VITALS: BP 144/94; PULSE 71; RESP 26; TEMP 36.8; O2SAT 94
[2024-01-15 08:26] VITALS: BP 144/94
[2024-01-15] MEDS: losartan 50 mg Tablet 100 MG PO (08:26)
[2024-01-15] MEDS: hyDRALAzine 10 mg Tablet PO (08:26)
[2024-01-15] MEDS: ticagrelor 90 mg Tablet PO (08:26)
[2024-01-15] MEDS: amlodipine 10 mg Tablet PO (08:26)
[2024-01-15] MEDS: aspirin 81 mg EC Tablet PO (08:26)
[2024-01-15] MEDS: acetaminophen 325 mg Tablet 650 MG PO (08:29)
--- NOTE | 2024-01-15 10:19 | P.DS_ITS ---
Discharge Providers Date of Admission: 01/13/24 02:42 Date of Discharge: January 15, 2024 Attending Provider at Admission: Jett Marinelli Attending Provider at Discharge: Dejuan Pritchett MD Primary Care Provider: Rosa Isela Castro Diagnoses at Discharge Discharge Diagnosis (1) NSTEMI (non-ST elevated myocardial infarction): Status: Acute (2) Chest pain: Status: Acute (3) Troponin level elevated: Status: Acute (4) Uncontrolled hypertension: Status: Acute (5) Thoracic aortic ectasia: Status: Acute Reason for Visit Reason for Visit: chest pain- left arm and headache Hospital Course Hospital Course Patient is a 48-year-old white male who presented to the hospital on 01/12. Non-ST elevation myocardial infarction was identified. He was anticoagulated, placed on aspirin, and cardiology consult obtained. An echocardiogram was obtained which demonstrated preserved EF. CTA was also performed demonstrating enlargement of the aortic root at 4.0 cm. Angiogram occurred on 01/12, a mid LAD stenosis of 70 to 80%. Drug-eluting stent was placed. Brilinta was initiated. While recovering, on the first floor patient had an episode of chest discomfort, diaphoresis, significant bradycardia. He received atropine 0.5 mg with recovery, but EKG demonstrated ST elevation. He was taken to the angiogram suite where a microdissection was noted distal to the stent, another drug- eluting stent was placed and patient stabilized. He was taken to the ICU for c lose observation. He was monitored in until 01/14. At that time he was discomfort free. Medications had been adjusted for blood pressure. It was thought he could discharge home with close follow-up. Angiogram sites were not concerning on discharge. He will get an outpatient sleep study, follow-up with cardiology, follow-up with his primary care provider. Discharge creatinine was normal. Patient and were able ask questions and agreed with the plan. Physical Exam Narrative: General Exam no distress Neck is supple Cardiovascular regular in rhythm Lungs clear Abdomen soft Extremities no sinus clubbing or edema, right radial and right femoral artery sites without significant hematoma. Discharge Data Studies Completed and Pending Completed Studies During Hospitalization Category Date Time Status CT angio chest [id number] Stat Cat Scan 01/13/24 03:31 Completed SUMMER ANALYST request for service Routine Exams 01/13/24 08:26 Completed XR chest 1V portable [id number] Stat Exams 01/12/24 23:12 Completed CV. echo complete* [id number] Routine Ultrasound 01/13/24 03:44 Completed Pending at discharge Category Date Time Status SUMMER ANALYST request for service Routine Exams 01/13/24 11:42 Taken Basic Metabolic Panel AM LABS Lab 01/16/24 04:00 Ordered Complete Blood Count w/Auto AM LABS Lab 01/16/24 04:00 Ordered Radiology Impressions Chest X-Ray 01/12/24 23:12 IMPRESSION: No acute chest findings. ADDENDUM: 01/13/24 0318 Additional finding of questionable prominence of the superior mediastinum was discussed with Dr. Patrick. CTA pending given clinical history concerning for possible aortic injury. Chest CTA 01/13/24 03:31 IMPRESSION: 1. Enlargement of the aortic root measuring up to 4.0 cm along with ectasia of the ascending thoracic aorta measuring 3.8 cm. No evidence of aortic dissection. 2. Cardiomegaly and multivessel coronary artery calcification Laboratory Results WBC 6.23 10^3/uL (3.29-11.43) 01/15/24 03:50 RBC 4.69 10^6/uL (3.85-5.65) 01/15/24 03:50 Hgb 14.00 g/dL (11.27-16.99) 01/15/24 03:50 Hct 43.1 % (37-53) 01/15/24 03:50 MCV 91.9 fl (82-101) 01/15/24 03:50 MCH 29.9 pg (27-33) 01/15/24 03:50 MCHC 32.5 g/dL (30-55) 01/15/24 03:50 RDW 12.7 % (12.1-15.1) 01/15/24 03:50 Plt Count 133 10^3/cmm (157-399) L 01/15/24 03:50 MPV 11.4 fL (7.4-10.4) H 01/15/24 03:50 Neut % (Auto) 72.0 % 01/15/24 03:50 Lymph % (Auto) 18.9 % 01/15/24 03:50 [place] % (Auto) 6.9 % 01/15/24 03:50 Eos % (Auto) 1.4 % 01/15/24 03:50 Baso % (Auto) 0.3 % 01/15/24 03:50 Neut # (Auto) 4.48 10^3/uL (1.8-7.7) 01/15/24 03:50 Lymph # (Auto) 1.2 10^3/uL (0.8-4.8) 01/15/24 03:50 [place] # (Auto) 0.4 10^3/uL (0.2-0.9) 01/15/24 03:50 Eos # (Auto) 0.1 10^3/uL (0.0-0.8) 01/15/24 03:50 Baso # (Auto) 0.0 10^3/uL (0.0-0.1) 01/15/24 03:50 Nucleated RBC % (auto) 0 % 01/15/24 03:50 Nucleated RBCs # 0.0 /100WBC 01/15/24 03:50 PT 12.80 SECONDS (12.1-14.9) 01/12/24 23:20 INR 0.93 (0.8-1.2) 01/12/24 23:20 APTT 41.4 SECONDS (23.9-36.7) H 01/13/24 16:26 D-Dimer 0.38 ug/mLFEU (0-0.59) 01/12/24 23:20 Sodium 138 mmol/L (136-145) 01/15/24 03:50 Potassium 4.3 mmol/L (3.5-5.1) 01/15/24 03:50 Chloride 104 mmol/L (98-107) 01/15/24 03:50 Carbon Dioxide 24 mmol/L (22-29) 01/15/24 03:50 Anion Gap 14.3 (5-19) 01/15/24 03:50 BUN 18 mg/dL (6-20) 01/15/24 03:50 Creatinine 1.1 mg/dL (0.7-1.2) 01/15/24 03:50 GFR Calculation 72.1 mL/min (90-130) L 01/15/24 03:50 Glucose 107 mg/dL (65-115) 01/15/24 03:50 POC Glucose 99 mg/dL (70-110) 01/13/24 11:36 Calculated Osmolality 288 mOsm/kg (285-295) 01/15/24 03:50 Calcium 8.5 mg/dL (8.5-10.5) 01/15/24 03:50 Magnesium 2.0 mg/dL (1.7-2.3) 01/14/24 04:01 Total Bilirubin 0.5 mg/dL (0.15-1.2) 01/12/24 23:20 AST 16 U/L (0-40) 01/12/24 23:20 ALT 15 U/L (0-41) 01/12/24 23:20 Alkaline Phosphatase 71 U/L (40-130) 01/12/24 23:20 Creatine Kinase 250 U/L (39-308) 01/13/24 01:30 Troponin T Baseline 39 ng/L (0-15) H 01/12/24 23:20 Troponin T 120 Minute 43.23 ng/L (0-15) H 01/13/24 01:30 Delta Troponin T 4.23 ABS# (0-10) 01/13/24 01:30 Troponin T Hi Sens 6Hr 140.4 ng/L (0-15) H 01/13/24 05:36 Troponin T Hi Sens 6Hr Delta 101.4 ng/L (0-12) H* 01/13/24 05:36 NT-Pro-B Natriuret Pep < 36 pg/mL (0-125) 01/12/24 23:20 Total Protein 6.5 g/dL (6.6-8.7) L 01/12/24 23:20 Albumin 4.3 g/dL (3.5-5.2) 01/12/24 23:20 Globulin 2.2 g/dL (1.3-4.6) 01/12/24 23:20 Triglycerides 233 mg/dL (0-150) H 01/13/24 01:30 Cholesterol 205 mg/dL (0-200) H 01/13/24 01:30 LDL Cholesterol, Calc 108 mg/dL (50-129) 01/13/24 01:30 Total VLDL Cholesterol 47 mg/dL (0-30) H 01/13/24 01:30 HDL Cholesterol 50 mg/dL (60-100) L 01/13/24 01:30 Cholesterol/HDL Ratio 4.10 mg/dL (1.0-5.00) 01/13/24 01:30 TSH 3.81 uIU/mL (0.27-4.20) 01/12/24 23:20 Vitals Last Vital Signs Temp 98.2 F 01/15/24 08:00 Pulse 71 01/15/24 08:00 Resp 26 H 01/15/24 08:00 BP 144/94 01/15/24 08:26 Pulse Ox 94 01/15/24 08:00 O2 Del Method Room Air 01/15/24 08:00 Discharge Plan Discharge Patient Disposition: Home Condition: Stable Prescriptions: New atorvastatin 40 mg Tablet 40 mg PO BEDTIME Qty: 30 0RF Brilinta 90 mg Tablet 90 mg PO BID Qty: 60 0RF hydralazine 10 mg Tablet 10 mg PO TID Qty: 90 0RF nitroglycerin 0.4 mg tablet, sublingual 0.4 mg sublingual Q5M PRN (Reason: chest pain) Qty: 20 0RF Rx Instructions: do not exceed 3 doses per episode amlodipine 10 mg Tablet 10 mg PO DAILY Qty: 30 0RF aspirin 81 mg Tablet,Delayed Release (Dr/Ec) 81 mg PO DAILY Qty: 30 0RF Continued losartan 100 mg tablet 100 mg PO DAILY Discontinued clonidine HCl 0.1 mg tablet 0.1 mg PO PRN Discharge Orders: Discharge Order (Routine); Ordered 01/15/24 Ordered By: Dejuan Pritchett Referrals: Rosa Isela Castro [Primary Care Provider] - 01/17/24 2:40 pm (Discussed arrangement of sleep study as an outpatient.) Yudelka Guerra FNP [Nurse Practitioner] - 01/23/24 11:30 am (End of this week, BMP on follow up) Discharge Diet: Cardiac Discharge Activity: Increase activity as tolerated Patient Instructions: Coronary Angioplasty (DC), Opioid Safety Activity Restrictions/Additional Instructions: Take all medicine as prescribed Follow-up with primary care provider 3 to 5 days, cardiology in the next 3 days or so. BMP on follow-up. Return for any concerns Encourage fluids Discussed with your primary care provider sleep study as an outpatient. Dietary to see prior to discharge. Monitor at least 1 hour after giving first dose of Hydralazine Discharge Attestations Time Spent in Discharge Care*: greater than 30 min Quality Metrics Clinical Quality Measures [ Acute Myocardial Infaction { Clinical Trial Participant: No; Contraindication to aspirin: None; Aspirin prescribed; Contraindication to statin: None; Statin prescribed; Contraindication to PCI: None; PCI performed;}] Coding Level of Care Code 66431 Total time (in minutes) for Discharge: 33 Diagnoses NSTEMI (non-ST elevated myocardial infarction) I21.4 Chest pain R07.9 Troponin level elevated R79.89 Uncontrolled hypertension I10 Thoracic aortic ectasia I77.810
--- NOTE | 2024-01-15 11:34 | PC.NUTR ---
Consult from MD and nurse to provide information re: low cholesterol/heart healthy diet. Family very motivated. Spoke for over 20 minutes and then took materials to them and also sent links via email. Pt and family have my contact information for further questions if needed.
[2024-01-15 11:38] VITALS: BP 153/76; PULSE 65; RESP 10; TEMP 36.9; O2SAT 95
[2024-01-15 14:12] VITALS: BP 153/76; PULSE 65; RESP 10; TEMP 36.9; O2SAT 95
== END 2024-01-15 14:12 | disposition home or self-care (01) ==
LOC: ER 01-13 02:44 → CSU 01-13 02:48 → ICU 01-13 12:24 → CSU 01-14 17:26
PROVIDERS: Internal Medicine; Admitting Provider Internal Medicine; Emergency Provider Emergency Medicine; PCP Registered Nurse; Visit Provider Internal Medicine
DX: I21.4 Non-ST elevation (NSTEMI) myocardial infarction (principal); I25.10 Atherosclerotic heart disease of native coronary artery without angina pectoris; R79.89 Other specified abnormal findings of blood chemistry; I10 Essential (primary) hypertension; I77.810 Thoracic aortic ectasia
CPT/HCPCS: 36415; 36416; 71045; 71275; 80048; 80053; 80061; 82550; 82962; 83735; 83880; 84443; 84484; 85025; 85347; 85378; 85610; 85730; 92978; 93005; 93306; 93454; 96372; 96374; 96375; 96376; 99152; 99153; 99285; C1725; C1753; C1769; C1874; C1887; C1894; C9600; G0378; J1200; J1644; J1650; J2250; J2270; J2405; J3010; J3490; J7030; Q9967

== ENCOUNTER → 2024-01-23 12:51 | Outpatient (BNVA) | payer BC, SELFPAY | PROVIDERS: PCP Registered Nurse; Visit Provider Nurse Practitioner Family | DX: Z83.2 Family history of diseases of the blood and blood-forming organs and certain disorders involving the immune mechanism (principal) | CPT/HCPCS: 36415; 81241 ==

== ENCOUNTER 2024-03-06 07:13 | Emergency (ER) | payer BC, SELFPAY ==
[2024-03-06] VITALS (7 sets, daily range): BP systolic 110–144; BP diastolic 57–79; PULSE 64–102; RESP 15–26; TEMP 36.4; O2SAT 97–99; BMI 33.0
--- NOTE | 2024-03-06 07:18 | ECG_ITS ---
[facility]: 2024-03-06 Pat Name: Torrey Wheeler Department: Room: Gender: Male Deadener: : 1975 Requested By: Adilene Garcia Order Number: [id number] Murguia MD: Larisa Lucio M.D. Measurements Intervals [place] Rate: 63 P: 59 MO: 180 QRS: 66 QRSD: 97 T: 83 QT: 409 QTc: 421 Interpretive Statements SINUS RHYTHM Compared to ECG 01/13/2024 11:37:17 Junctional rhythm no longer present ST (T wave) deviation no longer present Myocardial infarct finding no longer present Electronically Signed On 03-06-2024 16:57:39 BONE WORKER by Larisa Lucio M.D. [email or web address]
--- NOTE | 2024-03-06 07:20 | XRR_ITS ---
PROCEDURE INFORMATION: Exam: XR Chest Exam date and time: 03/06/2024 7:39 AM Age: 48 years old Clinical indication: Pain; Angina pectoris; Patient HX: Dizzy; Additional info: Chest pain TECHNIQUE: Imaging protocol: Radiologic exam of the chest. Views: 1 view. COMPARISON: CT angio chest [id number] 01/13/2024 3:33 AM FINDINGS: Lungs: Unremarkable. No consolidation. Pleural spaces: Unremarkable. No pleural effusion. No pneumothorax. Heart/Mediastinum: Unremarkable. No cardiomegaly. Bones/joints: Unremarkable. XR/XR chest 1V portable [id number] IMPRESSION: No acute findings.
--- NOTE | 2024-03-06 07:20 | ECG_ITS ---
[facility] Test Date: 2024-03-06 Pat Name: Torrey Wheeler Department: Room: Gender: Male Flat Grinder Operator: : 1975 Requested By: Adilene Garcia Order Number: [id number] Murguia MD: Larisa Lucio M.D. Measurements Intervals [place] Rate: 63 P: 59 HI: 168 QRS: 64 QRSD: 98 T: 84 QT: 402 QTc: 413 Interpretive Statements SINUS RHYTHM Compared to ECG 01/13/2024 11:37:17 Junctional rhythm no longer present ST (T wave) deviation no longer present Myocardial infarct finding no longer present Electronically Signed On 03-06-2024 16:57:47 DEBT MANAGEMENT COUNSELOR by Larisa Lucio M.D. [email or web address]
--- NOTE | 2024-03-06 07:32 | CT_ITS ---
WS: [id number] CT HEAD TECHNIQUE: Noncontrast CT of the head obtained from the skullbase to the vertex. CLINICAL INFORMATION: dizziness COMPARISON: None. DLP: 1095.[address] scans at [facility] use at least one of these dose optimization techniques: automated e xposure control; mA and/or kV adjustment per patient size (includes targeted exams where dose is matc hed to clinical indication); or iterative reconstruction. FINDINGS: No evidence of intracranial hemorrhage or mass effect. Ventricular system and basal cisterns are valero nt.No extra-axial fluid collections. No evidence of mass or mass effect. Normal giang-white differenti ation. Paranasal sinuses and mastoid air cells are well aerated. .Normal visualized soft tissues. CT/CT head wo con* [id number] IMPRESSION: 1. No evidence of intracranial hemorrhage or mass effect. 2. No acute intracranial findings. Notified ASHLEY Jesus at 03/06/2024 8:52 AM.
--- NOTE | 2024-03-06 07:33 | ED_ITS ---
Documented by User: ASHLEY Jesus 03/06/24 12:24 HPI - Dizziness 2 General: Chief Complaint: Dizziness Stated Complaint: dizziness, light headed Time Seen by Provider: 03/06/24 07:15 Source: patient, family () and EMS Mode of arrival: EMS Limitations: no limitations History of Present Illness: HPI Narrative: Patient is a 48-year-old male presents to ED today along with his for complaints of dizziness. Patient states he woke up around 5 AM this morning feeling dizzy. Patient states he felt normal when he went to sleep yesterday evening. He states since he awoke at 5 AM the dizziness has continued to increase. states she is concerned given his recent hospitalization and cardiac stenting. She states he felt dizzy prior to him coding while in the hospital. While in the hospital, patient underwent stenting to his LAD. While recovering, he did have an episode of significant bradycardia and ST elevation. He was taken back to the angiogram suite where a microdissection was noted distal to the stent. Another drug-eluting stent was then placed. Patient states since his discharge he has not had any episodes of chest pain. He is chest pain-free upon arrival here. He has been compliant with his Brilinta and aspirin. Patient currently does not have any facial drooping, slurred speech, extremity numbness, tingling, loss of sensation, or weakness. MD elicited complaint: dizziness Onset (ago): hour(s) Timing: awoke with symptoms Severity: severe Description: room spinning Exacerbating factors: movement/ambulation, change in body position and keeping eyes open Relieving factors: keeping eyes closed Associated symptoms: Reports no associated symptoms; Denies chest pain, chills, headache(s), nausea, palpitations, syncope or vomiting Associated neuro symptoms: Reports no associated symptoms; Deny numbness in extremities Stroke scale total: 0 Related Data Home Medications Medication Instructions Recorded Confirmed alprazolam 2 mg tablet (Xanax) 2 mg PO BID 01/23/24 01/23/24 losartan 100 mg tablet 50 mg PO DAILY 01/23/24 01/23/24 Previous Rx's Medication Instructions Recorded amlodipine 10 mg tablet 10 mg PO DAILY #30 tabs 01/14/24 aspirin 81 mg tablet,delayed 81 mg PO DAILY #30 tabs 01/14/24 release atorvastatin 40 mg tablet 40 mg PO BEDTIME #30 tabs 01/14/24 ticagrelor 90 mg tablet (Brilinta) 90 mg PO BID #60 tabs 01/14/24 nitroglycerin 0.4 mg sublingual 0.4 mg sublingual Q5M PRN chest 01/15/24 tablet pain #20 tabs hydralazine 10 mg tablet 10 mg PO BID #60 tabs 01/23/24 Allergies Allergy/AdvReac Type Severity Reaction Status Date / Time lisinopril Allergy Unknown Verified 01/23/24 11:35 Review of Systems 2 Const: Denies: fever(s) or chills Eyes: Denies: change in vision, blurry vision, photophobia, eye discomfort, floaters or seeing flashes Card: Denies: chest pain, palpitations, irregular heart rhythm, lightheadedness, syncope or dyspnea on exertion Resp: Denies: dyspnea, productive cough or pain on inspiration GI: Denies: abdominal pain, nausea, vomiting, heartburn or diarrhea : Denies: difficulty urinating or dysuria Musc: Denies: neck pain, back pain or joint pain Skin/Breast: Denies: rash Neuro: Reports: dizziness; Denies: headache(s), numbness in extremities, weakness in extremities or sensory changes PFSH ED 2 PFSH: Medical History HTN (hypertension) Social History Smoking and tobacco/nicotine status: never used tobacco/nicotine Physical Exam 2 Const: COMMON NORMALS: no acute distress, average body habitus, patient oriented x3, no limitations, healthy appearing, alert and well nourished G ENERAL APPEARANCE: cooperative ORIENTATION/CONSCIOUSNESS: Yes awake, Yes oriented to person, Yes oriented to place and Yes oriented to time HENMT: COMMON NORMALS: normocephalic and atraumatic HEAD & SCALP: normal to inspection, normocephalic and atraumatic FACE & SINUS: normal facial exam and face symmetric Eye: COMMON NORMALS: Equal, round and reactive pupils present and EOMs intact bilaterally GENERAL EYE: appearance normal, both eyes and all related structures and normal light reflex PUPIL: Yes Equal, round and reactive pupils present DIRECT OPHTHALMOSCOPY: Yes normal light reflex OTHER: no nystagmus noted Neck/C-Spine: COMMON NORMALS: full ROM, no lymphadenopathy, supple and no meningeal signs Chest: COMMONS NORMALS: normal inspection of the chest Resp: COMMON NORMALS: normal respiratory effort and clear to auscultation bilaterally AUSCULTATION: clear to auscultation bilaterally Cardio: COMMON NORMALS: regular rate and regular rhythm RATE: regular rate RHYTHM: regular rhythm GI: COMMON NORMALS: Normal to inspection, nondistended, normoactive bowel sounds present, Soft to palpation, non-tender, No hepatosplenomegaly present and no masses PALPATION: Yes Soft to palpation and Yes No hepatosplenomegaly present : COMMON NORMALS: Yes no CVA tenderness BLADDER/KIDNEY EXAM: Yes no CVA tenderness Back/Pelvis: COMMON NORMALS: no CVA tenderness and thoracic and lumbar spine normal to inspection Extremity: COMMON NORMALS: normal to inspection GENERAL: Yes normal exam except as noted Neuro: MYRON COMA SCALE: document GCS findings [place] coma scale eye opening: Spontaneous Myron coma scale verbal response: Orientated Myron coma scale motor response: Obey commands [place] coma scale total score: 15 COMMON NORMALS: patient oriented x3, CN's II-XII intact bilaterally, moves all extremities, no focal motor deficits, no sensory deficits noted and gait normal SENSORIUM/ORIENTATION: Yes alert, Yes oriented to person, Yes oriented to place and Yes oriented to time MENINGEAL SIGNS: Yes no meningeal signs C OORDINATION/BALANCE: [id number] test normal SPEECH: speech normal G AIT: Yes Unable to assess gait (due to dizziness) MOTOR EXAM: 5/5 motor strength present throughout COORDINATION: [id number] test normal O THER: NIH 0 Skin: COMMON NORMALS: no rashes or lesions noted GENERAL SKIN EXAM: no rashes or lesions noted Course 2 Consultations: Consultation #1: Dr. Asencio-recommending CT/CTA head and neck; will consult on patient; confirmed that patient awoke with symptoms Vital Signs: Vital signs: Vital Signs Temperature 97.5 F L 03/06/24 07:14 Pulse Rate 73 03/06/24 12:30 Respiratory Rate 26 H 03/06/24 12:30 Blood Pressure 110/57 03/06/24 12:30 Pulse Oximetry 98 03/06/24 12:30 [facility] - Dizziness Medical Decision Making Patient is a nice 48-year-old male here for acute onset dizziness. He has been worked up cardiac jiménez with baseline and repeat EKGs and troponins which were unremarkable. He has been chest pain-free throughout his stay. No diaphoresis. Due to acute onset dizziness he was worked up for a posterior circulation stroke. CT head, CTA head and neck, and MRI were all ordered at the recommendation of neurology/Dr. Asencio. Dr. Asencio has evaluated patient here in the emergency department and feel symptoms are most likely secondary to vertigo/BPPV. Patient will be allowed discharge with instructions to follow-up with ENT/physical therapy for vestibular rehabilitation. Strict return to ED precautions given. Differential Diagnosis Likely benign paroxysmal positional vertigo Medical Records I reviewed the patient's medical records. Lab Data I reviewed the patient's lab results. 03/06/24 08:05 03/06/24 08:05 Radiology Impressions Chest X-Ray 03/06/24 07:20 IMPRESSION: No acute findings. Head CT 03/06/24 07:32 IMPRESSION: 1. No evidence of intracranial hemorrhage or mass effect. 2. No acute intracranial findings. Notified ASHLEY Jesus at 03/06/2024 8:52 AM. Head/Neck CTA 03/06/24 07:36 IMPRESSION: 1. No significant cervical ICA stenosis. 2. Anterior dominant intracranial circulation with small but patent basilar artery. Both vertebrals are patent. 3. Somewhat small persistent LEFT FLEET MAINTENANCE FOREMAN with mild short segment stenosis in the mid FLEET MAINTENANCE FOREMAN at the P2-3 junction. Distal FLEET MAINTENANCE FOREMAN appears patent. 4. No proximal flow-limiting intracranial stenosis. 5. No other acute findings. Notified ASHLEY Jesus at 03/06/2024 9:03 AM. Head MRI 03/06/24 09:09 IMPRESSION: 1. No acute infarct or diffusion abnormality. 2. Numerous T2 and FLAIR signal hyperintensities in the subcortical white matter, predominantly in the frontal lobes. This can be seen with small vessel disease, diabetes, hypertension and migraines. 3. No prior infarct. 4. No paranasal sinus disease. Laboratory Results WBC 7.60 10^3/uL (3.29-11.43) 03/06/24 08:05 RBC 4.85 10^6/uL (3.85-5.65) 03/06/24 08:05 Hgb 14.60 g/dL (11.27-16.99) 03/06/24 08:05 Hct 44.2 % (37-53) 03/06/24 08:05 MCV 91.1 fl (82-101) 03/06/24 08:05 MCH 30.1 pg (27-33) 03/06/24 08:05 MCHC 33.0 g/dL (30-55) 03/06/24 08:05 RDW 12.9 % (12.1-15.1) 03/06/24 08:05 Plt Count 143 10^3/cmm (157-399) L 03/06/24 08:05 MPV 11.0 fL (7.4-10.4) H 03/06/24 08:05 Neut % (Auto) 79.8 % 03/06/24 08:05 Lymph % (Auto) 13.7 % 03/06/24 08:05 Bledsoe % (Auto) 4.6 % 03/06/24 08:05 Eos % (Auto) 0.8 % 03/06/24 08:05 Baso % (Auto) 0.4 % 03/06/24 08:05 Neut # (Auto) 6.07 10^3/uL (1.8-7.7) 03/06/24 08:05 Lymph # (Auto) 1.0 10^3/uL (0.8-4.8) 03/06/24 08:05 Bledsoe # (Auto) 0.4 10^3/uL (0.2-0.9) 03/06/24 08:05 Eos # (Auto) 0.1 10^3/uL (0.0-0.8) 03/06/24 08:05 Baso # (Auto) 0.0 10^3/uL (0.0-0.1) 03/06/24 08:05 Nucleated RBC % (auto) 0 % 03/06/24 08:05 Nucleated RBCs # 0.0 /100WBC 03/06/24 08:05 PT 12.30 SECONDS (12.1-14.9) 03/06/24 08:05 INR 0.89 (0.8-1.2) 03/06/24 08:05 APTT 20.4 SECONDS (23.9-36.7) L 03/06/24 08:05 Sodium 137 mmol/L (136-145) 03/06/24 08:05 Potassium 4.6 mmol/L (3.5-5.1) 03/06/24 08:05 Chloride 101 mmol/L (98-107) 03/06/24 08:05 Carbon Dioxide 25 mmol/L (22-29) 03/06/24 08:05 Anion Gap 15.6 (5-19) 03/06/24 08:05 BUN 21 mg/dL (6-20) H 03/06/24 08:05 Creatinine 1.0 mg/dL (0.7-1.2) 03/06/24 08:05 GFR Calculation 80.4 mL/min (90-130) L 03/06/24 08:05 Glucose 137 mg/dL (65-115) H 03/06/24 08:05 Calculated Osmolality 289 mOsm/kg (285-295) 03/06/24 08:05 Calcium 9.4 mg/dL (8.5-10.5) 03/06/24 08:05 Total Bilirubin 0.6 mg/dL (0.15-1.2) 03/06/24 08:05 AST 19 U/L (0-40) 03/06/24 08:05 ALT 32 U/L (0-41) 03/06/24 08:05 Alkaline Phosphatase 75 U/L (40-130) 03/06/24 08:05 Troponin T Baseline 10 ng/L (0-15) 03/06/24 08:05 Troponin T 120 Minute 12.26 ng/L (0-15) 03/06/24 09:56 Delta Troponin T 2.26 ABS# (0-10) 03/06/24 09:56 Total Protein 6.5 g/dL (6.6-8.7) L 03/06/24 08:05 Albumin 4.5 g/dL (3.5-5.2) 03/06/24 08:05 Globulin 2.0 g/dL (1.3-4.6) 03/06/24 08:05 All radiology interpretation(s) finalized by discharge Discharge Plan Discharge Patient Disposition: Home Clinical Impression: Vertigo Benign paroxysmal positional vertigo Qualifiers: Laterality: unspecified laterality Qualified Code(s): H81.10 - Benign paroxysmal vertigo, unspecified ear Condition: Stable Prescriptions: No Action alprazolam [Xanax] 2 mg tablet 2 mg PO BID hydralazine 10 mg tablet 10 mg PO BID Qty: 60 2RF atorvastatin 40 mg Tablet 40 mg PO BEDTIME Qty: 30 0RF aspirin 81 mg Tablet,Delayed Release (Dr/Ec) 81 mg PO DAILY Qty: 30 0RF amlodipine 10 mg Tablet 10 mg PO DAILY Qty: 30 0RF Brilinta 90 mg Tablet 90 mg PO BID Qty: 60 0RF nitroglycerin 0.4 mg tablet, sublingual 0.4 mg sublingual Q5M PRN (Reason: chest pain) Qty: 20 0RF Rx Instructions: do not exceed 3 doses per episode losartan 100 mg tablet 50 mg PO DAILY Discharge Orders: Discharge ED (Routine); Ordered 03/06/24 Ordered By: Adilene Garcia Referrals: Rosa Isela Castro [Primary Care Provider] - Patient Instructions: Vertigo (DC), Benign Paroxysmal Positional Vertigo (DC) Activity Restrictions/Additional Instructions: As we discussed, patient may try 50 mg of Meclizine every 6 hours to try to help with dizziness. I will place case management referral to get him set up with ENT and/for physical therapy for vestibular rehabilitation to help with his vertigo. He has been consulted on by neurology here in the emergency department. His MRI is unremarkable. Cardiac workup also initiated and unremarkable. You need to return to the emergency department for worsening dizziness, diaphoresis, generally feeling worse or unwell, onset of chest pain, shortness of breath, difficulty breathing, or any other concerns you may have. I have printed out instructional Rosa maneuvers that you do to help with his vertigo. Coding Level of Care Code ED Store C[employer]ian [employer] NIH stroke score NIHSS Level Of Consciousness - 1a: 0 Level Of Consciousness Questions - 1b: Both Correct Level Of Consciousness Commands - 1c: Both Correct Best Gaze - 2: Normal Visual Lopez - 3: No Visual Loss Facial Palsy - 4: Normal Motor Arm Right - 5: No Drift Motor Arm Left - 5: No Drift Motor Leg Right - 6: No Drift Motor Leg Left - 6: No Drift Limb Ataxia - 7: Absent Sensory - 8: Normal Best Language - 9: No Aphasia Dysarthia - 10: Normal Extinction And Inattention - 11: 0 Score Total Score: 0 Documented by User: Lawrence Ozuna DO 03/06/24 16:45 HPI - Dizziness 2 General: Chief Complaint: Dizziness Stated Complaint: dizziness, light headed Time Seen by Provider: 03/06/24 07:15 Related Data Home Medications Medication Instructions Recorded Confirmed alprazolam 2 mg tablet (Xanax) 2 mg PO BID 01/23/24 01/23/24 losartan 100 mg tablet 50 mg PO DAILY 01/23/24 01/23/24 Previous Rx's Medication Instructions Recorded amlodipine 10 mg tablet 10 mg PO DAILY #30 tabs 01/14/24 aspirin 81 mg tablet,delayed 81 mg PO DAILY #30 tabs 01/14/24 release atorvastatin 40 mg tablet 40 mg PO BEDTIME #30 tabs 01/14/24 ticagrelor 90 mg tablet (Brilinta) 90 mg PO BID #60 tabs 01/14/24 nitroglycerin 0.4 mg sublingual 0.4 mg sublingual Q5M PRN chest 01/15/24 tablet pain #20 tabs hydralazine 10 mg tablet 10 mg PO BID #60 tabs 01/23/24 Allergies Allergy/AdvReac Type Severity Reaction Status Date / Time lisinopril Allergy Unknown Verified 01/23/24 11:35 PFSH ED 2 PFSH: Medical History HTN (hypertension) Social History Smoking and tobacco/nicotine status: never used tobacco/nicotine Physical Exam 2 Neuro: MYRON COMA SCALE: document GCS findings [place] coma scale total score: 15 Course 2 Vital Signs: Vital signs: Vital Signs Temperature 97.5 F L 03/06/24 07:14 Pulse Rate 73 03/06/24 12:30 Respiratory Rate 26 H 03/06/24 12:30 Blood Pressure 110/57 03/06/24 12:30 Pulse Oximetry 98 03/06/24 12:30 MDM - Dizziness Medical Decision Making Patient is a nice 48-year-old male here for acute onset dizziness. He has been worked up cardiac jiménez with baseline and repeat EKGs and troponins which were unremarkable. He has been chest pain-free throughout his stay. No diaphoresis. Due to acute onset dizziness he was worked up for a posterior circulation stroke. CT head, CTA head and neck, and MRI were all ordered at the recommendation of neurology/Dr. Asencio. Dr. Asencio has evaluated patient here in the emergency department and feel symptoms are most likely secondary to vertigo/BPPV. Patient will be allowed discharge with instructions to follow-up with ENT/physical therapy for vestibular rehabilitation. Strict return to ED precautions given. Chart reviewed and patient discussed with midlevel. Agree with assessment and plan. Lab Data 03/06/24 08:05 03/06/24 08:05 Radiology Impressions Chest X-Ray 03/06/24 07:20 IMPRESSION: No acute findings. Head CT 03/06/24 07:32 IMPRESSION: 1. No evidence of intracranial hemorrhage or mass effect. 2. No acute intracranial findings. Notified ASHLEY Jesus at 03/06/2024 8:52 AM. Head/Neck CTA 03/06/24 07:36 IMPRESSION: 1. No significant cervical ICA stenosis. 2. Anterior dominant intracranial circulation with small but patent basilar artery. Both vertebrals are patent. 3. Somewhat small persistent LEFT FLEET MAINTENANCE FOREMAN with mild short segment stenosis in the mid FLEET MAINTENANCE FOREMAN at the P2-3 junction. Distal FLEET MAINTENANCE FOREMAN appears patent. 4. No proximal flow-limiting intracranial stenosis. 5. No other acute findings. Notified ASHLEY Jesus at 03/06/2024 9:03 AM. Head MRI 03/06/24 09:09 IMPRESSION: 1. No acute infarct or diffusion abnormality. 2. Numerous T2 and FLAIR signal hyperintensities in the subcortical white matter, predominantly in the frontal lobes. This can be seen with small vessel disease, diabetes, hypertension and migraines. 3. No prior infarct. 4. No paranasal sinus disease. Laboratory Results WBC 7.60 10^3/uL (3.29-11.43) 03/06/24 08:05 RBC 4.85 10^6/uL (3.85-5.65) 03/06/24 08:05 Hgb 14.60 g/dL (11.27-16.99) 03/06/24 08:05 Hct 44.2 % (37-53) 03/06/24 08:05 MCV 91.1 fl (82-101) 03/06/24 08:05 MCH 30.1 pg (27-33) 03/06/24 08:05 MCHC 33.0 g/dL (30-55) 03/06/24 08:05 RDW 12.9 % (12.1-15.1) 03/06/24 08:05 Plt Count 143 10^3/cmm (157-399) L 03/06/24 08:05 MPV 11.0 fL (7.4-10.4) H 03/06/24 08:05 Neut % (Auto) 79.8 % 03/06/24 08:05 Lymph % (Auto) 13.7 % 03/06/24 08:05 Bledsoe % (Auto) 4.6 % 03/06/24 08:05 Eos % (Auto) 0.8 % 03/06/24 08:05 Baso % (Auto) 0.4 % 03/06/24 08:05 Neut # (Auto) 6.07 10^3/uL (1.8-7.7) 03/06/24 08:05 Lymph # (Auto) 1.0 10^3/uL (0.8-4.8) 03/06/24 08:05 Bledsoe # (Auto) 0.4 10^3/uL (0.2-0.9) 03/06/24 08:05 Eos # (Auto) 0.1 10^3/uL (0.0-0.8) 03/06/24 08:05 Baso # (Auto) 0.0 10^3/uL (0.0-0.1) 03/06/24 08:05 Nucleated RBC % (auto) 0 % 03/06/24 08:05 Nucleated RBCs # 0.0 /100WBC 03/06/24 08:05 PT 12.30 SECONDS (12.1-14.9) 03/06/24 08:05 INR 0.89 (0.8-1.2) 03/06/24 08:05 APTT 20.4 SECONDS (23.9-36.7) L 03/06/24 08:05 Sodium 137 mmol/L (136-145) 03/06/24 08:05 Potassium 4.6 mmol/L (3.5-5.1) 03/06/24 08:05 Chloride 101 mmol/L (98-107) 03/06/24 08:05 Carbon Dioxide 25 mmol/L (22-29) 03/06/24 08:05 Anion Gap 15.6 (5-19) 03/06/24 08:05 BUN 21 mg/dL (6-20) H 03/06/24 08:05 Creatinine 1.0 mg/dL (0.7-1.2) 03/06/24 08:05 GFR Calculation 80.4 mL/min (90-130) L 03/06/24 08:05 Glucose 137 mg/dL (65-115) H 03/06/24 08:05 Calculated Osmolality 289 mOsm/kg (285-295) 03/06/24 08:05 Calcium 9.4 mg/dL (8.5-10.5) 03/06/24 08:05 Total Bilirubin 0.6 mg/dL (0.15-1.2) 03/06/24 08:05 AST 19 U/L (0-40) 03/06/24 08:05 ALT 32 U/L (0-41) 03/06/24 08:05 Alkaline Phosphatase 75 U/L (40-130) 03/06/24 08:05 Troponin T Baseline 10 ng/L (0-15) 03/06/24 08:05 Troponin T 120 Minute 12.26 ng/L (0-15) 03/06/24 09:56 Delta Troponin T 2.26 ABS# (0-10) 03/06/24 09:56 Total Protein 6.5 g/dL (6.6-8.7) L 03/06/24 08:05 Albumin 4.5 g/dL (3.5-5.2) 03/06/24 08:05 Globulin 2.0 g/dL (1.3-4.6) 03/06/24 08:05 Discharge Plan Discharge Patient Disposition: Home Clinical Impression: Vertigo Benign paroxysmal positional vertigo Qualifiers: Laterality: unspecified laterality Qualified Code(s): H81.10 - Benign paroxysmal vertigo, unspecified ear Condition: Stable Prescriptions: No Action alprazolam [Xanax] 2 mg tablet 2 mg PO BID hydralazine 10 mg tablet 10 mg PO BID Qty: 60 2RF atorvastatin 40 mg Tablet 40 mg PO BEDTIME Qty: 30 0RF aspirin 81 mg Tablet,Delayed Release (Dr/Ec) 81 mg PO DAILY Qty: 30 0RF amlodipine 10 mg Tablet 10 mg PO DAILY Qty: 30 0RF Brilinta 90 mg Tablet 90 mg PO BID Qty: 60 0RF nitroglycerin 0.4 mg tablet, sublingual 0.4 mg sublingual Q5M PRN (Reason: chest pain) Qty: 20 0RF Rx Instructions: do not exceed 3 doses per episode losartan 100 mg tablet 50 mg PO DAILY Discharge Orders: Discharge ED (Routine); Ordered 03/06/24 Ordered By: Adilene Garcia Referrals: Rosa Isela Castro [Primary Care Provider] - Patient Instructions: Vertigo (DC), Benign Paroxysmal Positional Vertigo (DC) Activity Restrictions/Additional Instructions: As we discussed, patient may try 50 mg of Meclizine every 6 hours to try to help with dizziness. I will place case management referral to get him set up with ENT and/for physical therapy for vestibular rehabilitation to help with his vertigo. He has been consulted on by neurology here in the emergency department. His MRI is unremarkable. Cardiac workup also initiated and unremarkable. You need to return to the emergency department for worsening dizziness, diaphoresis, generally feeling worse or unwell, onset of chest pain, shortness of breath, difficulty breathing, or any other concerns you may have. I have printed out instructional Rosa maneuvers that you do to help with his vertigo. Coding Level of Care Code ED Store Cust[employer]ian [employer] NIH stroke score Score Total Score: 0
--- NOTE | 2024-03-06 07:36 | CT_ITS ---
WS: [id number] CTA HEAD AND NECK TECHNIQUE: Contrast enhanced CTA of the head and neck with coronal and sagittal reformatted images an d maximum intensity projection (MIP) images. NASCET criteria utilized. CLINICAL INFORMATION: dizziness COMPARISON: None. DLP: 514.[address] scans at [facility] use at least one of these dose optimization techniques: automated e xposure control; mA and/or kV adjustment per patient size (includes targeted exams where dose is matc hed to clinical indication); or iterative reconstruction. FINDINGS: RIGHT: RIGHT common carotid artery is patent. No significant RIGHT ICA stenosis. Mild atheromatous pl aque RIGHT carotid bulb. RIGHT ICA is patent to the skull base. LEFT: LEFT common carotid artery is patent. No significant LEFT ICA stenosis. LEFT ICA is patent to t he skull base. LEFT dominant vertebral artery. Smaller but patent RIGHT vertebral artery. Proximal basilar artery is patent. Somewhat small persistent LEFT GROMMET MACHINE OPERATOR with mild short segment stenosis in the mid GROMMET MACHINE OPERATOR. Di stal GROMMET MACHINE OPERATOR appears patent. Anterior dominant circulation. Both ICAs are patent at the skull base. Normal vascularity to the [place] territory. Normal vascularity t o the MCA territories bilaterally. No proximal flow-limiting stenosis. CT/CT angio headneck* [id number] IMPRESSION: 1. No significant cervical ICA stenosis. 2. Anterior dominant intracranial circulation with small but patent basilar ar jonnie. Both vertebrals are patent. 3. Somewhat small persistent LEFT GROMMET MACHINE OPERATOR with mild short segment stenosis i n the mid GROMMET MACHINE OPERATOR at the P2-3 junction. Distal GROMMET MACHINE OPERATOR appears patent. 4. No proximal flow-limiting intracranial stenosis. 5. No other acute findings. Notified ASHLEY Jesus at 03/06/2024 9:03 AM.
[2024-03-06 08:18] LABS: Basophils % 0.4 %; Eosinophils # 0.1 10^3/uL (0.0-0.8); Eosinophils % 0.8 %; Hematocrit 44.2 % (37-53); Lymphocytes % 13.7 %; Mean Corpuscular Hemoglobin 30.1 pg (27-33); Mean Corpuscular Volume 91.1 fl (82-101); Monocytes # 0.4 10^3/uL (0.2-0.9); Monocytes % 4.6 %; Neutrophils # 6.07 10^3/uL (1.8-7.7); Neutrophils % 79.8 %; Nucleated Red Blood Cells % 0 %; Platelet Count 143 10^3/cmm (157-399); Red Blood Count 4.85 10^6/uL (3.85-5.65); Red Cell Distribution Width 12.9 % (12.1-15.1)
[2024-03-06 08:33] LABS: INR 0.89 (0.8-1.2); Partial Thromboplastin Time 20.4 SECONDS (23.9-36.7)
[2024-03-06 08:36] LABS: Troponin(5th) Baseline 10 ng/L (0-15)
[2024-03-06 08:39] LABS: Alanine Aminotransferase 32 U/L (0-41); Albumin Level 4.5 g/dL (3.5-5.2); Alkaline Phosphatase 75 U/L (40-130); Anion Gap 15.6 (5-19); Aspartate Amino Transferase 19 U/L (0-40); Blood Urea Nitrogen 21 mg/dL (6-20); Calcium 9.4 mg/dL (8.5-10.5); Carbon Dioxide 25 mmol/L (22-29); Chloride 101 mmol/L (98-107); Creatinine Clr Calc Pharmacy 115.1244; Glomerular Filtration Rate 80.4 mL/min (90-130); Glucose 137 mg/dL (65-115); Osmolality Calculated 289 mOsm/kg (285-295); Potassium 4.6 mmol/L (3.5-5.1); Sodium 137 mmol/L (136-145); Total Bilirubin 0.6 mg/dL (0.15-1.2); Total Protein 6.5 g/dL (6.6-8.7)
[2024-03-06] MEDS: iohexol 350 mg/mL 500 mL Btl (per mL) IV (08:39)
--- NOTE | 2024-03-06 09:09 | MR_ITS ---
WS: [id number] MRI BRAIN WITH AND WITHOUT CONTRAST HISTORY: dizziness COMPARISON: CT head 03/06/2024 TECHNIQUE: Multiplanar imaging performed through the brain with with and without MultiHance IV. No acute infarcts are seen. Patino-white matter differentiation is well preserved. There are numerous T 2 and FLAIR signal hyperintensities predominantly in the subcortical frontal white matter with a few foci in the temporal and RIGHT parietal lobe. No infarct. Normal hippocampus. No susceptibility artifacts or prior lacunar infarcts. Ventricles and extra-axial spaces are normal. Clivus and pituitary gland are normal. Visualized posterior fossa and brainstem are also normal. Postcontrast images are negative for masses or vascular malformations. Dural venous sinuses are normal. Paranasal sinuses: No air-fluid levels. Mastoid air cells: Normal. Calvarium and scalp: Normal. MR/MR head wo/w con [id number] IMPRESSION: 1. No acute infarct or diffusion abnormality. 2. Numerous T2 and FLAIR signal hyperintensities in the subcortical white chichi er, predominantly in the frontal lobes. This can be seen with small vessel dise ase, diabetes, hypertension and migraines. 3. No prior infarct. 4. No paranasal sinus disease.
--- NOTE | 2024-03-06 09:20 | ECG_ITS ---
[facility] Date: 2024-[facility]-06 Pat Name: Torrey Wheeler Department: Room: Gender: Male Head Of Physics: : 1975 Requested By: Adilene Garcia Order Number: [id number] Shantal MD: Larisa Lucio M.D. Measurements Intervals [place] Rate: 65 P: 20 CT: 181 QRS: 68 QRSD: 94 T: 100 QT: 396 QTc: 412 Interpretive Statements SINUS RHYTHM Compared to ECG 03/06/2024 07:25:36 No significant changes Electronically Signed On 03-06-2024 17:05:40 WEIGHER PRODUCTION by Larisa Lucio M.D. [email or web address]
[2024-03-06] MEDS: meclizine 25 mg tablet 50 MG PO (09:36)
--- NOTE | 2024-03-06 09:48 | P.CONIM_ITS ---
Providers/Reason For Consult 2 Consulting Physician/Specialty*: Caleb Asencio MD neurology and epilepsy Reason for Consult*: Acute care/code stroke emergency department room #16 Primary Care Provider: Rosa Isela Castro History of Present Illness History of Present Illness Torrey Wheeler is a 48 year old male with a history of heart disease status post stent placement in the left LAD 01/13/2024. According to the patient, he woke up on the morning of 03/06/2024 around 5 AM. Patient stated that he was dizzy upon awakening but went to take care of some of the dogs outside. The patient stated that he later went upstairs to get dressed in order to take care of the other dogs but experienced increasing dizziness. As a result of the increasing dizziness the patient stated that he went to wake up his son to assist with taking care of the other dogs but he ended up taking care of the remaining animals himself. The patient stated that the dizziness increased described as everything spinning. The patient reported that he took his blood pressure 4 times. The first blood pressure revealed a systolic blood pressure 132. The patient reports that his other blood pressure readings were within normal limits. Pulse ox according to the patient's was 97 and 98% saturation on room air. Patient heart rate was reported to be in the 70s. The patien's had the patient take a couple bites of an apple and asked her to lie down upstairs. According to the patient's the patient experienced intermittent episodes of dizziness described as everything spinning associated with intermittent diaphoresis where the patient was sweating and looking pale. The stated that she had the patient undergo bedside 'FAST assessment which was reported to reveal the patient complaining of left arm feeling tired and patient was experiencing intermittent diaphoresis and dizziness and great color sensation similar to the symptoms he was experiencing prior to his heart attack requiring stent placement. The patient's stated she contacted a friend who is a nurse and she follow-up the nurse's instruction and contacted EMS. In the emergency room the patient's NIH score = 0 per the ER physician. Since the patient's last known well cannot be determined and the patient's NIH score = 0. Code stroke was not initiated but neurology consult was obtained. NIH score =0 by neurology. On examination the patient did have some horizontal nystagmus on right lateral gaze. Patient denied dizziness during the nystagmus. The nystagmus did extinguish. The patient did report some intermittent dizziness when he turned his head but stated that the dizziness resolved when he holds his head still. The patient reported a family history of father and paternal grandmother with clotting disorders. But according to the patient he underwent genetic testing for clotting disorders which were unrevealing. NIH score =[address] angiogram of the head and neck 03/06/2024 negative for thrombosis Noncontrast head CT 03/06/2024 negative Serum glucose 137 Drug allergies: Statins which resulted in muscle aches and pains Lisinopril type reaction unknown Current medications: Brilinta 90 mg p.o. twice daily Aspirin 81 mg p.o. daily Xanax 2 mg p.o. twice daily Norvasc 10 mg p.o. daily Hydralazine 10 mg p.o. twice daily Losartan 100 mg p.o. daily Sublingual nitroglycerin 0.4 mg every 5 minutes as needed for chest pain Past medical history: Stent placement left LAD 01/13/2024 Myocardial infarction Past medications: Lipitor discontinued secondary to muscle aches and pain Lisinopril Habits: None Family history: Remarkable for a father and paternal grandmother with clotting disorder Remarkable for patient's father requiring inferior vena cava filter and treatment with Coumadin and compression stockings Review of Systems 2 General: Reports: 10 or more systems reviewed and unremarkable except in HPI and below Medications/Allergies Home Medications Medication Instructions Recorded Confirmed Last Taken Type amlodipine 10 mg tablet 10 mg PO DAILY #30 tabs 01/14/24 Unknown Rx aspirin 81 mg tablet,delayed 81 mg PO DAILY #30 tabs 01/14/24 Unknown Rx release atorvastatin 40 mg tablet 40 mg PO BEDTIME #30 tabs 01/14/24 Unknown Rx ticagrelor 90 mg tablet (Brilinta) 90 mg PO BID #60 tabs 01/14/24 Unknown Rx nitroglycerin 0.4 mg sublingual 0.4 mg sublingual Q5M PRN chest 01/15/24 Unknown Rx tablet pain #20 tabs alprazolam 2 mg tablet (Xanax) 2 mg PO BID 01/23/24 01/23/24 Unknown History hydralazine 10 mg tablet 10 mg PO BID #60 tabs 01/23/24 01/23/24 Unknown Rx losartan 100 mg tablet 50 mg PO DAILY 01/23/24 01/23/24 Unknown History Allergies Allergy/AdvReac Type Severity Reaction Status Date / Time lisinopril Allergy Unknown Verified 01/23/24 11:35 PFSH Acute 2 PFSH: Medical History HTN (hypertension) Social History Smoking and tobacco/nicotine status: never used tobacco/nicotine Vitals/I&O/Wt Last Vital Signs Temp 97.5 F L 03/06/24 07:14 Pulse 64 03/06/24 07:26 Resp 18 03/06/24 07:26 BP 127/73 03/06/24 07:26 Pulse Ox 99 03/06/24 07:26 03/05/24 03/06/24 03/06/24 22:59 06:59 14:59 Intake Total 0 / 0 Balance 0 / 0 Weight last 48 hrs Weight 237 lb Physical Exam 2 Narrative: NIH score =[address] angiogram of the head and neck 03/06/2024 negative for thrombosis Noncontrast head CT 03/06/2024 negative Serum glucose 137 The patient is alert and oriented x 3. Speech fluent. Head normocephalic. Neck supple. Cranial nerves II through XII intact except for horizontal nystagmus on right lateral gaze which extinguishes. Visual lynn full via confrontation. Extraocular movements intact. There was no obvious facial weakness. Motor testing 5/5 bilaterally. [id number] and fbll-[id number] maneuvers were negative for ataxia. Deep tendon reflexes revealed plantar responses bilaterally. Sensory examination intact to touch. There was no extinction on double sensory stimulation. Throat clear. Lungs clear. Heart regular rhythm and rate. Extremities were negative for cyanosis or edema. Data 03/06/24 08:05 03/06/24 08:05 A&P Assessment and plan (1) Vertigo: Impression: 1. Objective vertigo associated with intermittent episodes of diaphoresis which was present upon awakening on 03/06/2024 at [address] and CT angiogram of the head and neck were unrevealing. Clinical examination suggestive of paroxysmal benign positional vertigo. 2. Coronary artery disease status post stent placement in the left LAD 01/13/2024 Plan: 1. Recommend obtaining head MRI with and without contrast to assess for posterior fossa lesion and brainstem stroke although clinical examination is suggestive of peripheral origin for vertigo (this study will be performed while the patient is in the emergency department 03/06/2024) 2. Recommend ENT evaluation for vertigo 3. Agree with Antivert 25 mg to 50 mg p.o. every 6 hours as needed dizziness 4. If head MRI is negative for stroke okay to discharge patient from emergency room and schedule ENT evaluation as outpatient 5. Continue Brilinta and low-dose aspirin as recommended by cardiology 6. Note: Patient reported allergic reaction to statins manifested as generalized muscle aches and pains 7. Stroke education/stroke pamphlet to be given to patient Consult Attestations 2 Medical Necessity Statement: The patient was evaluated by neurology for dizziness/objective vertigo Coding Level of Care Code 82783 Diagnoses Vertigo R42
[2024-03-06] MEDS: acetaminophen 325 mg Tablet 650 MG PO (09:56)
[2024-03-06 10:24] LABS: Troponin 5 2HR 12.26 ng/L (0-15); Troponin 5 2HR Delta 2.26 ABS# (0-10)
--- NOTE | 2024-03-10 08:09 | DCPLANNER ---
Message sent to PT for Rehab for Vertigo
== END 2024-03-06 12:40 | disposition home or self-care (01) ==
PROVIDERS: Emergency Provider Physician Assistant; PCP Registered Nurse
DX: Z95.5 Presence of coronary angioplasty implant and graft (principal); I25.10 Atherosclerotic heart disease of native coronary artery without angina pectoris; H81.10 Benign paroxysmal vertigo, unspecified ear; Z79.82 Long term (current) use of aspirin; I10 Essential (primary) hypertension
CPT/HCPCS: 70450; 70496; 70498; 70553; 71045; 80053; 84484; 85025; 85610; 85730; 93005; 99285; J8597

== ENCOUNTER 2024-03-18 14:50 | Outpatient (CLI) | payer BC, SELFPAY | END 2024-03-18 14:51 | disposition home or self-care (01) | LOC: SLEEP 14:56 | PROVIDERS: PCP Registered Nurse; Visit Provider Registered Nurse | DX: G47.33 Obstructive sleep apnea (adult) (pediatric) (principal) | CPT/HCPCS: G0399 ==

== ENCOUNTER 2024-03-30 09:49 | Outpatient (CLI) | payer BC, SELFPAY ==
[2024-03-30 10:48] LABS: Chol HDL Ratio 4.43 mg/dL (1.0-5.00); Cholesterol 235 mg/dL (0-200); HDL Cholesterol 53 mg/dL (60-100); LDL Cholesterol Calculated 144 mg/dL (50-129); LDL HDL Ratio 2.72 RATIO (0.00-3.22); Triglycerides 192 mg/dL (0-150)
== END 2024-03-30 09:50 | disposition home or self-care (01) ==
LOC: LAB 09:51
PROVIDERS: PCP Registered Nurse; Visit Provider Internal Medicine
DX: E78.5 Hyperlipidemia, unspecified (principal)
CPT/HCPCS: 36415; 80061

== ENCOUNTER → 2024-09-25 10:20 | Outpatient (BNVA) | payer BC, SELFPAY | PROVIDERS: PCP Registered Nurse; Visit Provider Internal Medicine | DX: E78.5 Hyperlipidemia, unspecified (principal) | CPT/HCPCS: 36415; 80061 ==

== ENCOUNTER 2024-11-16 09:03 | Outpatient (CLI) | payer BC, SELFPAY ==
--- NOTE | 2024-11-16 09:00 | CT_ITS ---
WS: [id number] CTA THORACIC TECHNIQUE: Contrast enhanced CTA of the thoracic aorta with coronal and sagittal reformatted images and maximum intensity projection (MIP) images. CLINICAL INFORMATION: Thoracic Aneuryam COMPARISON: 2023 DLP: 888.[address] scans at [facility] use at least one of these dose optimization techniques: automated exposure control; mA and/or kV adjustment per patient size (includes targeted exams where dose is matched to clinical indication); or iterative reconstruction. FINDINGS: Aneurysmal ascending thoracic aorta measuring approximately 3.6 cm in maximum dimension. This is unchanged from previous. Stable dilatation of the aortic root measuring 3.7 cm. Normal caliber descending thoracic aorta. Mild aortic calcification. Coronary calcification. Cardiomegaly. Small esophageal hiatal hernia. Celiac and SMA are patent in the upper abdomen. Proximal renal arteries are patent. Adrenal glands are normal. Hepatomegaly and splenomegaly partially visualized. Lungs are well aerated. No acute pulmonary infiltrates. No mediastinal or hilar lymphadenopathy. No axillary lymphadenopathy. CT/CT angio chest [id number] IMPRESSION: 1. Stable aneurysmal ascending thoracic aorta measuring 3.6 cm and stable aort ic root dilatation measuring 3.7 cm. 2. Mild aortic and coronary calcification. 3. Small esophageal hiatal hernia. 4. Partially visualized hepatomegaly and splenomegaly.
[2024-11-16] MEDS: iohexol 350 mg/mL 500 mL Btl (per mL) IV (09:26)
== END 2024-11-16 09:04 | disposition home or self-care (01) ==
LOC: RAD 09:04
PROVIDERS: PCP Registered Nurse; Visit Provider Internal Medicine
DX: I71.20 Thoracic aortic aneurysm, without rupture, unspecified (principal); I70.0 Atherosclerosis of aorta; I25.10 Atherosclerotic heart disease of native coronary artery without angina pectoris; K44.9 Diaphragmatic hernia without obstruction or gangrene; R16.2 Hepatomegaly with splenomegaly, not elsewhere classified
CPT/HCPCS: 71275

== ENCOUNTER 2025-03-10 09:18 | Outpatient (CLI) | payer BC, SELFPAY ==
[2025-03-10 11:35] LABS: Cholesterol 222 mg/dL (0-200); HDL Cholesterol 54 mg/dL (60-100); Triglycerides 105 mg/dL (0-150)
== END 2025-03-10 09:19 | disposition home or self-care (01) ==
LOC: LAB 09:19
PROVIDERS: PCP Registered Nurse; Visit Provider Internal Medicine
DX: I10 Essential (primary) hypertension (principal); I25.10 Atherosclerotic heart disease of native coronary artery without angina pectoris
CPT/HCPCS: 36415; 80061